=== PATIENT | male | born 1980 | race Caucasian/White ===

== ENCOUNTER 2019-08-26 19:44 | Emergency (ER) | payer OTHER, SELFPAY ==
[2019-08-26 19:47] VITALS: BP 188/111; PULSE 97; RESP 16; TEMP 36.5; O2SAT 98
[2019-08-26 19:50] VITALS: RESP 17
--- NOTE | 2019-08-26 20:00 | ED.GENADUL_ITS ---
Discharge Plan Disposition Patient Disposition: AGAINST MEDICAL ADVICE Condition: Stable Discharge Details Chief Complaint: Chest Pain Clinical Impression: Acute pancreatitis Primary Care Provider: Fahad Maldonado ED Provider: Isaak Garcia [place] Meds and New Rx's Prescriptions: New Hydrocodone/Apap 5/325, 4 Tab [[place] 5/325, 4 Tabs/Btl] 1 tab PO BID PRN (Reason: pain) Qty: 0 RF: 0 Ondansetron Odt, 3 Tabs/Btl [Zofran Odt, 3 Tabs/Btl] 4 mg PO Q8H PRN (Reason: vomiting) Qty: 0 RF: 0 Discharge Instructions Additional Instructions: You are leaving AGAINST MEDICAL ADVICE with a diagnosis of acute pancreatitis likely brought on from your alcohol consumption. You are at risk of getting worse and becoming more ill with shock and a possibility. Please abstain from alcohol. Maintain a clear liquid diet. May use ondansetron for vomiting and hydrocodone/acetaminophen for pain to get through till tomorrow. Please return to the ED tomorrow when able for reevaluation and admission. Return at once if you develop fever, persistent vomiting, worsening pain, other concerns or if you change your mind sooner than tomorrow. Referrals: [facility] [Provider Group] Medical Decision Making Patient presenting with epigastric/chest pain that likely is acid related given his large amount of alcohol consumption. He does not have right upper quadrant tenderness. Story is not concerning for cardiac disease though given his smoking status, family history, BMI as well as lack of medical care in the past must consider this. His well score is 0 and he perks out so d-dimer is not necessary. Will treat with GI cocktail and Carafate orally as well as Reglan and Pepcid intravenously. Labs and chest x-ray ordered. EKG nondiagnostic. 20:40 - patient having reaction to the Reglan with pretty significant anxiety and akathisia. IV Benadryl ordered. If this does not help we will give IV Ativan. 21:00 - patient responded well to Benadryl. Now able to lie back down on stretcher and relax. 23:30 - patient's labs came back with markedly elevated lipase. CT scan ordered. His WBC and Hgb are fine. Chemistries and kidney function are good. AST/ALT up likely from drinking alcohol. Bilirubin is fine. Patient given morphine for pain and went to CT. CT shows inflammation of pancreas and duodenum. No fluid collection/necrosis/free air. Repeat troponin is negative. Had long discussion with patient regarding admission. He is refusing due to responsibilties at work tomorrow morning, but will come back tomorrow once that is addressed and be admitted then. We discussed risk including shock and , though currently he looks fine. In fact, BP is elevated still and I suspect he probably has underlying/undiagnosed HTN. In any event, he is signing out AMA. I have instructed him to have a clear liquid diet only. No alcohol. Home with [place] and Zofran to get through until tomorrow when he returns. Understands to return at once if spikes fever, worsening pain, persistent vomiting. Imaging Data Radiologic Study: Attestation: I personally reviewed and interpreted this imaging study as follows: Imaging: X-Ray My impression: negative Radiologist's impression: TECHNIQUE: Imaging protocol: XR of the chest Views: 2 views. COMPARISON: No relevant prior studies available. FINDINGS: Lungs: No focal consolidation. Pleural space: No pleural effusion or pneumothorax. Heart/Mediastinum: The heart and mediastinum are within normal limits. Bones/joints: No acute bony abnormality. IMPRESSION: No acute cardiopulmonary disease. Dictated and Authenticated by: Yon Hodges MD. Radiologic Study #2: Imaging: CT Scan Radiologist's impression: TECHNIQUE: Imaging protocol: Computed tomography of the abdomen and pelvis with intravenous contrast. Radiation optimization: All CT scans at this facility use at least one of these dose optimization techniques: automated exposure control; mA and/or kV adjustment per patient size (includes targeted exams where dose is matched to clinical indication); or iterative reconstruction. Contrast material: OMNIPAQUE 350; Contrast volume: 100 ml; Contrast route: IV; COMPARISON: No relevant prior studies available. FINDINGS: Liver: There is fatty infiltration of the liver. Gallbladder and bile ducts: Normal. No calcified stones. No ductal dilation. Pancreas: There is moderate peripancreatic fat stranding suspicious for pancreatitis. No peripancreatic fluid collection or evidence of necrosis. Spleen: Normal. No splenomegaly. Adrenals: Normal. No mass. Kidneys and ureters: No hydronephrosis. Subcentimeter renal hypodensities are too small to characterize. Stomach and bowel: Inflammatory changes extend along the proximal duodenum. No bowel obstruction. Appendix: No evidence of appendicitis. Intraperitoneal space: Tiny amount of free fluid. No free air. Vasculature: Unremarkable. No abdominal aortic aneurysm. Lymph nodes: Unremarkable. No enlarged lymph nodes. Bladder: There is mild diffuse bladder wall thickening. Reproductive: Unremarkable as visualized. Bones/joints: Unremarkable. No acute fracture. Soft tissues: Unremarkable. IMPRESSION: 1. Findings suspicious for acute pancreatitis. There is probable adjacent duodenitis. 2. Bladder wall thickening may be due to cystitis or lack of distention. 3. Hepatic steatosis. Dictated and Authenticated by: Yon Hodges MD. Lab Data Lab results reviewed: Yes I reviewed the patient's lab results. ECG Data Attestation: I personally reviewed and interpreted this ECG (s) as follows: Prior ECG tracings: not available for review Interpretation: Normal sinus rhythm at a rate of 97. Normal axis and intervals. Nonspecific ST changes noted. Nondiagnostic. HPI General Mode of arrival: ambulatory . Date/Time Provider Initiated Documentation: 08/26/19 19:59 . Limitations to Documentation: no limitations . Information obtained by: patient and RN notes reviewed . HPI Narrative: Patient presents to ED with complaint of chest pain. When asked specifically where the pain is he points to his xiphoid region. Pain started about [birth year]25/1929 this afternoon. Is been constant. Changes a little bit in intensity but not much. Does not radiate anywhere. He has nausea but no vomiting. Feels a little short of breath at times but denies lightheadedness or diaphoresis. Denies any leg pain or leg swelling. Denies any fever or cough. He does smoke cigarettes as well as marijuana. He drinks almost a 12 pack of beer a day. He has a few cups of coffee a day. He did take 800 of ibuprofen 90 minutes prior to coming in with no change in pain. He has not seen a physician in some time, denies any medical problems. Does have family history of cardiac disease. Related Data Home Medications Medication Instructions Recorded Confirmed HYDROcodone/APAP 5/325, 4 tab 1 tab PO BID PRN #0 08/26/19 [[place] 5/325, 4 tabs/btl] Ondansetron ODT, 3 tabs/btl 4 mg PO Q8H PRN #0 08/26/19 [Zofran ODT, 3 tabs/btl] Previous Rx's Medication Instructions Recorded HYDROcodone/APAP 5/325, 4 tab 1 tab PO BID PRN #0 08/26/19 [[place] 5/325, 4 tabs/btl] Ondansetron ODT, 3 tabs/btl 4 mg PO Q8H PRN #0 08/26/19 [Zofran ODT, 3 tabs/btl] Allergies Allergy/AdvReac Type Severity Reaction Status Date / Time Penicillins Allergy Unknown possible Unverified 07/24/17 11:15 reaction Sulfa (Sulfonamide Allergy Unknown possible Unverified 07/24/17 11:15 Antibiotics) reaction metoclopramide AdvReac Severe Anxiety Verified 08/26/19 20:42 and akathisia General Stated Complaint: Chest Pain GABRIELLE: 2 Review of Systems Narrative: 04/07 Review of Systems completed and is negative except as stated above in HPI (Systems reviewed: Const, Eyes, ENT, Resp, CV, GI, , MSK, Skin, Neuro) [facility] Medical History (Updated 08/26/19 @ 23:42 by Isaak Garcia MD) No active medical problems (Acute) Surgical History (Updated 08/26/19 @ 20:15 by Isaak Garcia MD) S/P hernia repair (Inactive) Social History Smoking/Tobacco Use Status: Current every day Alcohol Intake: current Alcohol Intake frequency: 3 or more drinks per day Alcohol type: beer Drug use: Daily Substance use type: marijuana Do you feel safe at home: Yes Do you feel safe in your relationship?: Yes Exam Narrative Exam Narrative: Vitals: Afebrile. Markedly hypertensive. Otherwise normal heart rate and respiratory rate as well as room air pulse oximetry. Const: Obese male in NAD. HEENT: NC/AT. Normal facial exam. Eyes: Normal conjunctiva and sclera. Neck: Supple. Trachea midline. Lungs: Normal respiratory effort. Lungs are clear. Cor: RRR without murmur/gallop. Good radial pulses. GI: Soft and nondistended. Tender in the epigastric area without guarding or rebound. No tenderness in the right upper quadrant. Neuro: A+O x 3. Normal speech, mentation, gait. Cranial nerves II - XII grossly intact. No gross motor or sensory deficit. Ext: No C/C/E. No calf tenderness. Skin: Warm and dry without rash. Course Vital Signs Vital signs: Vital Signs Temperature 97.7 F 08/26/19 19:47 Pulse 97 H 08/26/19 19:47 Respiratory Rate 16 08/26/19 19:47 Blood Pressure 188/111 H 08/26/19 19:47 Pulse Oximetry 98 08/26/19 19:47 Temperature 97.7 F 08/26/19 19:47 Temperature Source Skin 08/26/19 19:47 Pulse 97 H 08/26/19 19:47 Respiratory Rate 17 08/26/19 19:50 Respiratory Effort 08/26/19 19:50 Respiratory Depth Normal 08/26/19 19:50 Respiratory Pattern Normal 08/26/19 19:50 Blood Pressure 188/111 H 08/26/19 19:47 Blood Pressure Position Supine 08/26/19 19:47 Pulse Oximetry 98 08/26/19 19:47 Oxygen Delivery Method Room Air 08/26/19 19:47 Oxygen Flow Rate 0 08/26/19 19:47 Pain Level 7 08/26/19 19:47
[2019-08-26] MEDS: Sucralfate 1 GM TAB PO (20:18)
[2019-08-26] MEDS: FAMOTIDINE 20 MG/50 ML BAG 200 MG IVPB (20:18)
[2019-08-26] MEDS: Metoclopramide 10 MG/2 ML VIAL IVP (20:18)
[2019-08-26 20:19] LABS: Abs Immature Grans 0.02 k/cumm (0.0-0.09); Absolute Basophil Count 0.04 k/cumm (0.0-0.2); Absolute Eosinophil Count 0.15 k/cumm (0.0-0.7); Absolute Lymphocyte Count 1.59 k/cumm (1.2-3.4); Absolute Monocyte Count 1.19 k/cumm (0.11-0.7); Absolute Neutrophil Count 6.85 k/cumm (1.2-6.7); Basophils % 0.4; Eosinophils % 1.5; HCT 47.4 % (40.0-50.0); Immature Grans % 0.2 %; Lymphocytes % 16.2; Mean Corp. HGB Concentration 33.8 g/dL (32.0-36.0); Mean Corpuscular Hemoglobin 32.9 pg (27.0-33.0); Mean Corpuscular Volume 97.3 fL (80-95); Mean Platelet Volume 10.9 fL (8.0-11.0); Monocytes % 12.1; Neutrophils % 69.6; Platelet Count 160 x1000/uL (130-400); RBC 4.87 m/cumm (4.50-6.00); RBC Distribution Width 13.2 % (11.8-14.1); White Blood Cell Count 9.84 k/cumm (4.4-10.8)
[2019-08-26] MEDS: Normal Saline Flush 10 ML SYR IVP (20:19)
[2019-08-26] MEDS: diphenhydrAMINE 50 MG/ML VIAL 25 MG IVP (20:41)
--- NOTE | 2019-08-26 20:45 | DI.RAD_ITS ---
EXAM: XR CHEST 2V PA LATERAL CLINICAL HISTORY: chest pain TECHNIQUE: 2D digital imaging was performed. COMPARISON: No exams were available for comparison FINDINGS: MEDIASTINUM: Normal. HEART: Normal. PULMONARY VASCULATURE: Normal. LUNGS: Clear. PLEURAL SPACE: No pleural effusion or pneumothorax. BONE:Normal. OTHER FINDINGS:Normal. IMPRESSION: No acute pulmonary findings. DATA REPOSITORY: RADIATION DOSE DELIVERED:
[2019-08-26 20:54] LABS: ALT 232 U/L (16-63); AST 191 U/L (15-37); Albumin 4.2 g/dL (3.4-5.0); Alkaline Phosphatase 98 U/L (46-116); Anion Gap 8.6 mmol/L (3-11); BUN 7 mg/dL (7-18); Bilirubin, Total 0.9 mg/dL (0.2-1.0); CO2 31.4 mmol/L (21.0-32.0); CREATININE 1.04 mg/dL (0.70-1.30); Calcium 8.9 mg/dL (8.5-10.1); Chloride 99 mmol/L (98-107); Glucose 111 mg/dL (74-106); Magnesium 1.7 mg/dL (1.8-2.4); Potassium 3.5 mmol/L (3.5-5.1); Sodium 139 mmol/L (136-145); Total Protein 8.1 g/dL (6.4-8.2)
--- NOTE | 2019-08-26 20:58 | DI.VRAD_ITS ---
PROCEDURE INFORMATION: Exam: XR Chest, 2 Views Exam date and time: 08/26/2019 8:50 PM Age: 39 years old Clinical indication: Chest pain and sternal or substernal pain; Type not specified; Patient HX: Substernal epigastric chest pain today TECHNIQUE: Imaging protocol: XR of the chest Views: 2 views. COMPARISON: No relevant prior studies available. FINDINGS: Lungs: No focal consolidation. Pleural space: No pleural effusion or pneumothorax. Heart/Mediastinum: The heart and mediastinum are within normal limits. Bones/joints: No acute bony abnormality. IMPRESSION: No acute cardiopulmonary disease. Dictated and Authenticated by: Yon Hodges MD. Ordering:RAJINDER Mulligan MD
[2019-08-26 21:00] LABS: Lipase 1757 U/L (73-393); Troponin I < 0.05 ng/Ml (<0.06)
--- NOTE | 2019-08-26 21:08 | DI.CT_ITS ---
EXAM: CT ABDOMEN PELVIS W CLINICAL HISTORY: epigastric pain with elevated lipase (1700) TECHNIQUE: Imaging Protocol: Axial computed tomography images with coronal and sagittal reformatted images were created and reviewed CONTRAST MATERIAL: Intravenous: Omnipaque 350 Contrast volume:100 mL Oral: No COMPARISON: No exams were available for comparison FINDINGS: ABDOMEN: Lung Bases: Normal where visualized. Liver: Decreased attenuation diffusely consistent with hepatic steatosis. No measurable mass. Portal, Superior Mesenteric, and Splenic Veins: Unremarkable. Gallbladder and Biliary Tract: No radiodense calculus or dilation. Pancreas: There is moderate stranding seen around the head and body of the pancreas consistent with a cute pancreatitis. Mild increase in size of the head of the pancreas is noted. No focal fluid collec tion is seen to suggest abscess or phlegmon. Spleen: Normal. Small partially calcified cyst in the anterior medial aspect of the spleen. Adrenals: No masses seen. Kidneys: Normal size, contour and axis. No radiodense stones or obstructive uropathy. No masses seen. Abdominal Aorta: Abdominal portion non-dilated. Bowel: Mild wall thickening seen in the duodenum adjacent to the pancreatic inflammatory process. Th ere is a normal retrocecal appendix. Remainder of the bowel is unremarkable. Peritoneal Cavity: No ascites, collection or mesenteric inflammatory response. Lymph Nodes: Within normal limits. Bones: Unremarkable. Soft Tissues: Unremarkable. PELVIS: Bladder: Incompletely distended likely accounting for the mild bladder wall thickening. Infectious o r inflammatory process cannot be entirely excluded however. Reproductive Organs: Unremarkable as visualized. Lymph Nodes: Within normal limits. Bones: Within normal limits. IMPRESSION: 1. Findings most consistent with acute pancreatitis. No evidence of abscess or phlegmon. 2. Findings suggestive of duodenitis likely secondary to the adjacent inflamed pancreas. 3. Hepatic steatosis. Incidental Findings RADIATION DOSE DELIVERED: DATA REPOSITORY: All CT scans at this facility are submitted to the National Radiology Data Registry (NRDR) Dose Index Registry (DIR) with the [employer] (A[employer]). RADIATION OPTIMIZATION: All CT scans at this facility use at least one of these dose optimization te chniques: automated exposure control; mA and/or kV adjustment per patient size (includes targeted exa ms where dose is matched to clinical indication); or iterative reconstruction.
[2019-08-26] MEDS: Lactated Ringers 1,000 ML 200 ML IV (21:13)
[2019-08-26] MEDS: Omnipaque 350 MG/ML 100 ML BTL IJ (21:16)
[2019-08-26] MEDS: Normal Saline - Diluent 50 ML VIAL IV (21:27)
[2019-08-26 21:34] VITALS: BP 172/100; PULSE 90; O2SAT 96
--- NOTE | 2019-08-26 22:07 | DI.VRAD_ITS ---
PROCEDURE INFORMATION: Exam: CT Abdomen And Pelvis With Contrast Exam date and time: 08/26/2019 9:26 PM Age: 39 years old Clinical indication: Other: Epigastric pain with elevated lipase (1700); Prior surgery; Surgery date: 6+ months; Surgery type: Hernia repair; Additional info: Epigastric pain with elevated lipase (1700) with nausea TECHNIQUE: Imaging protocol: Computed tomography of the abdomen and pelvis with intravenous contrast. Radiation optimization: All CT scans at this facility use at least one of these dose optimization techniques: automated exposure control; mA and/or kV adjustment per patient size (includes targeted exams where dose is matched to clinical indication); or iterative reconstruction. Contrast material: OMNIPAQUE 350; Contrast volume: 100 ml; Contrast route: IV; COMPARISON: No relevant prior studies available. FINDINGS: Liver: There is fatty infiltration of the liver. Gallbladder and bile ducts: Normal. No calcified stones. No ductal dilation. Pancreas: There is moderate peripancreatic fat stranding suspicious for pancreatitis. No peripancreatic fluid collection or evidence of necrosis. Spleen: Normal. No splenomegaly. Adrenals: Normal. No mass. Kidneys and ureters: No hydronephrosis. Subcentimeter renal hypodensities are too small to characterize. Stomach and bowel: Inflammatory changes extend along the proximal duodenum. No bowel obstruction. Appendix: No evidence of appendicitis. Intraperitoneal space: Tiny amount of free fluid. No free air. Vasculature: Unremarkable. No abdominal aortic aneurysm. Lymph nodes: Unremarkable. No enlarged lymph nodes. Bladder: There is mild diffuse bladder wall thickening. Reproductive: Unremarkable as visualized. Bones/joints: Unremarkable. No acute fracture. Soft tissues: Unremarkable. IMPRESSION: 1. Findings suspicious for acute pancreatitis. There is probable adjacent duodenitis. 2. Bladder wall thickening may be due to cystitis or lack of distention. 3. Hepatic steatosis. Dictated and Authenticated by: Yon Hodges MD. Ordering:RAJINDER Mulligan MD
[2019-08-26 22:31] VITALS: BP 145/105; PULSE 88; O2SAT 96
[2019-08-26 23:30] LABS: Troponin I < 0.05 ng/Ml (<0.06)
[2019-08-26] MEDS: Ondansetron O.D.T. 4 MG TABEF, 3 TABS/BTL PO (23:40)
[2019-08-26 23:41] VITALS: BP 156/106; PULSE 94; RESP 16; O2SAT 94
--- NOTE | 2019-08-26 23:50 | NUR.NOTE ---
Admission recommended, pt declined, states he has to go to work tomorrow. Leaving AMA, risks discussed with MD Garcia. Pt states he will return tomorrow after work for admission. CL diet discussed. IV removed. Ambulated to exit with steady gait.
== END 2019-08-26 23:45 | disposition left against medical advice (07) ==
PROVIDERS: Emergency Provider Emergency Medicine; PCP Family Medicine
DX: K85.90 Acute pancreatitis without necrosis or infection, unspecified (principal); F10.10 Alcohol abuse, uncomplicated; F41.9 Anxiety disorder, unspecified; G25.71 Drug induced akathisia; T45.0X5A Adverse effect of antiallergic and antiemetic drugs, initial encounter; R03.0 Elevated blood-pressure reading, without diagnosis of hypertension; Z53.29 Procedure and treatment not carried out because of patient's decision for other reasons
CPT/HCPCS: 36415; 80053; 83690; 93005; 96361; 96365; 96375; 99285; 71046; 74177; 83735; 84484; 85025; 93010; 99284; J1200; J2765; J3490

== ENCOUNTER 2019-08-27 10:27 | Inpatient (IN) | payer OTHER, SELFPAY ==
[2019-08-27] VITALS (94 sets, daily range): BP systolic 129–187; BP diastolic 93–138; PULSE 95–151; RESP 13–63; TEMP 36.5–36.6; O2SAT 91–100
[2019-08-27] MEDS: Normal Saline 1,000 ML 1000 ML IV (11:06)
[2019-08-27] MEDS: Ondansetron 4 MG/2 ML VIAL (11:06)
[2019-08-27 11:15] LABS: Abs Immature Grans 0.04 k/cumm (0.0-0.09); Absolute Monocyte Count 1.29 k/cumm (0.11-0.7); Basophils % 0.1; Eosinophils % 0.1; HGB 17.8 g/dL (13.5-17.5); Immature Grans % 0.3 %; Lymphocytes % 6.5; Mean Corp. HGB Concentration 33.6 g/dL (32.0-36.0); Mean Corpuscular Hemoglobin 32.6 pg (27.0-33.0); Mean Corpuscular Volume 97.1 fL (80-95); Mean Platelet Volume 11.1 fL (8.0-11.0); Monocytes % 9.3; Neutrophils % 83.7; Platelet Count 180 x1000/uL (130-400); RBC 5.46 m/cumm (4.50-6.00); RBC Distribution Width 13.2 % (11.8-14.1); White Blood Cell Count 13.86 k/cumm (4.4-10.8)
[2019-08-27] MEDS: LORazepam 2 MG/ML VIAL 0.5 MG IV (11:15)
[2019-08-27 11:16] LABS: Absolute Basophil Count 0.01 k/cumm (0.0-0.2); Absolute Eosinophil Count 0.01 k/cumm (0.0-0.7)
[2019-08-27] MEDS: Normal Saline Flush 10 ML SYR IVP ×2 (11:16→23:19)
--- NOTE | 2019-08-27 11:21 | W.ED.GENAD ---
Discharge Plan Discharge Details Chief Complaint: Abd Prob Admit Date/Time: 08/27/19 14:26 Admit Provider: Lanny Zhou Attending Provider: Lanny Zhou Primary Care Provider: Fahad Maldonado ED Provider: Oly Garcia Discharge Data Discharge Date/Time-TO BE ENTERED AT DEPARTURE: 08/27/19 18:02 Medical Decision Making This is a pleasant 39-year-old patient presenting to the emergency room complaining of return of his abdominal pain. Patient was evaluated in the emergency room yesterday diagnosed with pancreatitis ultimately was offered admission to the hospital and declined. Patient reported he was compliant with pain medication prescribed which was effective at managing his pain however once medication for pain wore off pain became intolerable. Patient does report an episode of vomiting while he was at school today. 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 Patient reports he is feeling worse. Patient presents appearing quite diaphoretic and anxious. Patient reports 10 out of 10 abdominal pain at this time. Patient is a daily drinker admitting to approximately 12 beers daily. Patient has not drank in approximately 30 hours and is also likely experiencing alcohol withdrawal at this time. Patient does report nausea and sweating. Patient denies obvious tremulous feeling at this time. Patient requesting medication for pain and admission to the hospital as he is having difficulty managing this at home. Will repeat patient's labs as well as hydrate IV. Pain medication as well as Ativan ordered for alcohol withdrawal. EKG reveals a heart rate of 122 with sinus tachycardia. No significant change compared to yesterday's EKG. QTC noted to be 530. No ST segment changes noted. This was reviewed with Dr. Gabriel Coon. CT 08/26/2019 revealed FINDINGS: Liver: There is fatty infiltration of the liver. Gallbladder and bile ducts: Normal. No calcified stones. No ductal dilation. Pancreas: There is moderate peripancreatic fat stranding suspicious for pancreatitis. No peripancreatic fluid collection or evidence of necrosis. Spleen: Normal. No splenomegaly. Adrenals: Normal. No mass. Kidneys and ureters: No hydronephrosis. Subcentimeter renal hypodensities are too small to characterize. Stomach and bowel: Inflammatory changes extend along the proximal duodenum. No bowel obstruction. Appendix: No evidence of appendicitis. Intraperitoneal space: Tiny amount of free fluid. No free air. Vasculature: Unremarkable. No abdominal aortic aneurysm. Lymph nodes: Unremarkable. No enlarged lymph nodes. Bladder: There is mild diffuse bladder wall thickening. Reproductive: Unremarkable as visualized. Bones/joints: Unremarkable. No acute fracture. Soft tissues: Unremarkable. IMPRESSION: 1. Findings suspicious for acute pancreatitis. There is probable adjacent duodenitis. 2. Bladder wall thickening may be due to cystitis or lack of distention. 3. Hepatic steatosis. Repeat of patient's labs today reveal a new leukocytosis which was not present yesterday, worsening of lipase, mild elevation of bilirubin which was normal yesterday. Patient's LFTs were somewhat improved compared to yesterday's evaluation. Patient has required multiple doses of pain medication for adequate management of his pain. Patient is scoring on CIWA and is now getting 2 mg of Ativan as needed for withdrawal symptoms which is quite helpful in managing his withdrawal symptoms. Patient has been provided Zofran for nausea relief. Spoke with Dr. Zhou of surgery regarding patient's labs in addition to his clinical presentation of pancreatitis. She does recommend ultrasound of the right upper quadrant to rule out any choledocholithiasis at this time. She does recommend LR to be used for rehydration after initial normal saline bolus provided. No evidence of choledocholithiasis, pericholecystic fluid or ductal dilation. Discussed case again with Dr. Zhou of surgery who will admit the patient for acute pancreatitis, and the presence of alcohol withdrawal. Patient agrees with plan of care admission at this time. Patient is currently more comfortable in bed. customer care team coach did evaluate the patient at the bedside and has established a relationship they have estranged phone numbers patient does not feel he needs AAA at this time but will follow-up as an outpatient as needed with manager recovery. Resources were provided to the patient. HPI General Date/Time Provider Initiated Documentation: 08/27/19 10:55. HPI Narrative: This is a 39-year-old patient returning to the emergency room after being seen in the emergency room yesterday and diagnosed with pancreatitis. This patient was advised admission to the hospital yesterday however he declined. Patient was sent home with [facility]. Patient reports when taking medication for pain he did have relief of his abdominal pain however reports return of abdominal pain during the day at work today and began vomiting. Patient returns to the emergency room for increase in pain in his upper abdomen. Denies radiating pain toward his back. Patient presents appearing quite sweaty. Reports nausea. 10 out of 10 abdominal pain. Patient denies bowel changes or diarrhea. Patient denies chest pain, difficulty breathing shortness or wheezing. Patient is a daily drinker he reports drinking approximately 12 beers daily for several years. Has never detoxed or been in any program. Patient reports last drink was approximately 30 hours ago. Patient denies history of pancreatitis in the past. He does report a few months ago he did have abdominal pain which was similar in nature but resolved on its own without seeking evaluation. Related Data Home Medications Medication Instructions Recorded Confirmed HYDROcodone/APAP 5/325, 4 tab 1 tab PO BID PRN #0 08/26/19 08/27/19 [[place] 5/325, 4 tabs/btl] Ondansetron ODT, 3 tabs/btl 4 mg PO Q8H PRN #0 08/26/19 08/27/19 [Zofran ODT, 3 tabs/btl] Previous Rx's Medication Instructions Recorded HYDROcodone/APAP 5/325, 4 tab 1 tab PO BID PRN #0 08/26/19 [[place] 5/325, 4 tabs/btl] Ondansetron ODT, 3 tabs/btl 4 mg PO Q8H PRN #0 08/26/19 [Zofran ODT, 3 tabs/btl] Allergies Allergy/AdvReac Type Severity Reaction Status Date / Time Penicillins Allergy Unknown possible Unverified 07/24/17 11:15 reaction Sulfa (Sulfonamide Allergy Unknown possible Unverified 07/24/17 11:15 Antibiotics) reaction metoclopramide AdvReac Severe Anxiety Verified 08/26/19 20:42 and akathisia General Stated Complaint: Abd Prob GABRIELLE: 3 Review of Systems All systems reviewed & are unremarkable except as noted in HPI and below Constitutional Constitutional: Denies chills, Denies fever(s), Denies headache(s) and Reports malaise ENT Ears, Nose, Mouth, and Throat: Denies otalgia, Denies headache(s) and Denies sore throat Cardiovascular Cardiovascular: Denies chest pain, Denies dyspnea and Denies dyspnea on exertion Respiratory Respiratory: Denies cough, Denies dyspnea and Denies dyspnea on exertion Gastrointestinal Gastrointestinal: Reports abdominal pain, Denies diarrhea, Reports nausea and Reports vomiting Genitourinary Genitourinary: Denies hematuria and Denies oliguria Neurologic Neurologic: Denies headache(s) [facility] Medical History Alcohol dependence with withdrawal delirium (Acute) Alcohol withdrawal delirium, acute, hyperactive (Acute) ETOH abuse (Chronic) No active medical problems (Acute) Surgical History (Updated 08/26/19 @ 20:15 by Isaak Garcia MD) S/P hernia repair (Inactive) Social History Smoking/Tobacco Use Status: Current every day Alcohol Intake: current Alcohol Intake frequency: 3 or more drinks per day Alcohol type: beer Drug use: Daily Substance use type: marijuana Do you feel safe at home: Yes Do you feel safe in your relationship?: Yes Exam Narrative Exam Narrative: CONST: Diaphoretic, uncomfortable. alert and oriented. HENMT: Head nomocephalic, normal to inspection. Atraumatic. Hearing grossly normal. External ear canal no erythema or swelling. TM normal bilaterally. Nose normal to inspection. No rhinnorhea. Normal facial exam. Oral mucosa normal. Tounge normal. Dentition normal. Normal posterior oropharynx. Uvula midline. EYES: General normal appearance. Alignment normal. Eyelids normal. Conjunctiva normal. Sclera normal. PERRL. NECK: Normal visual inspection. CHEST: Normal insepection of the chest. RESP: Normal respiratory effort. Speaking full sentences. No cough. No wheezing. No retractions. Clear to auscaltation. Breath sound equal and present bilaterally. CARDIO: No JVD. Normal PMI. Tachycardic. Regular Rhythm. Normal peripheral pulses. GI: Normal inspection of abdomen. No distension. Abdomen is soft, tenderness noted to the left upper quadrant as well as epigastric, mild periumbilical pain. No significant lower abdominal pain noted. Bowel sounds present in all 4 quadrants. No rebound. No gaurding. MUSCULOSKELETAL: Normal Gait. FROM of all extremities. No distal edema present SKIN: Normal. Clammy. No rashes. NEURO: Alert and awake. Speech clear. PSYCH: Anxious. cooperative. Course Vital Signs Vital signs: Vital Signs Respiratory Rate 16 08/27/19 10:36 Temperature 36.6 C 08/27/19 10:47 Temperature Source Tympanic 08/27/19 10:47 Pulse 114 H 08/27/19 10:47 Respiratory Rate 16 08/27/19 10:47 Respiratory Effort Non-Labored 08/27/19 10:36 Respiratory Depth Normal 08/27/19 10:36 Respiratory Pattern Normal 08/27/19 10:36 Blood Pressure 163/118 H 08/27/19 10:47 Blood Pressure Position Sitting 08/27/19 10:47 Pulse Oximetry 100 08/27/19 10:47 Oxygen Delivery Method Room Air 08/27/19 10:47 Oxygen Flow Rate 0 08/27/19 10:47 Pain Level 10 08/27/19 11:06 Lab/Test Results Lab/Test Results: Laboratory Tests Range/Units 08/27/19 10:44 WBC (4.4-10.8) k/cumm 13.86 H D RBC (4.50-6.00) m/cumm 5.46 Hgb (13.5-17.5) g/dL 17.8 H Hct (40.0-50.0) % 53.0 H MCV (80-95) fL 97.1 H MCH (27.0-33.0) pg 32.6 MCHC (32.0-36.0) g/dL 33.6 RDW (11.8-14.1) % 13.2 Plt Count (130-400) x1000/uL 180 MPV (8.0-11.0) fL 11.1 H Immature Gran % % 0.3 Neutrophils % 83.7 Lymphocytes % 6.5 Monocytes % 9.3 Eosinophils % 0.1 Basophils % 0.1 Absolute Neutrophils (1.2-6.7) k/cumm 11.60 H Absolute Lymphocytes (1.2-3.4) k/cumm 0.90 L Absolute Monocytes (0.11-0.7) k/cumm 1.29 H Absolute Eosinophils (0.0-0.7) k/cumm 0.01 Absolute Basophils (0.0-0.2) k/cumm 0.01
[2019-08-27 11:30] LABS: ALT 195 U/L (16-63); AST 126 U/L (15-37); Albumin 4.3 g/dL (3.4-5.0); Alkaline Phosphatase 101 U/L (46-116); Anion Gap 12.3 mmol/L (3-11); BUN 10 mg/dL (7-18); Bilirubin, Total 2.2 mg/dL (0.2-1.0); CO2 28.7 mmol/L (21.0-32.0); CREATININE 1.31 mg/dL (0.70-1.30); Chloride 98 mmol/L (98-107); Glucose 146 mg/dL (74-106); Potassium 3.5 mmol/L (3.5-5.1); Sodium 139 mmol/L (136-145); Total Protein 8.1 g/dL (6.4-8.2)
[2019-08-27 11:50] LABS: Lipase 6879 U/L (73-393)
--- NOTE | 2019-08-27 12:15 | DI.US_ITS ---
EXAM: US ABDOMEN LIMITED CLINICAL HISTORY: RUQ R/O CHOLEDOCHOLITHIASIS TECHNIQUE: Ultrasound abdomen performed using standard protocol. COMPARISON: No exams were available for comparison FINDINGS: LIVER: Enlarged measuring 20 cm. Diffuse increased echogenicity consistent with fatty infiltration. GALLBLADDER: No evidence of cholelithiasis. No evidence of wall thickening. No pericholecystic fluid identified. BILIARY SYSTEM: Common bile duct measures 3.4 mm. No intrahepatic biliary ductal dilation. SAMAYOA'S SIGN: Negative. ASCITES: None seen. IMPRESSION: Limited abdominal ultrasound. Hepatomegaly and hepatic steatosis. No evidence of cholelithiasis or biliary ductal dilatation. DATA REPOSITORY:
[2019-08-27] MEDS: LORazepam 2 MG/ML VIAL IVP ×2 (12:52→17:12)
[2019-08-27] MEDS: FAMOTIDINE 20 MG/50 ML BAG 200 MG IVPB ×2 (12:53→23:15)
[2019-08-27] MEDS: Lactated Ringers 1,000 ML 1000 ML IV ×2 (12:53→17:30)
[2019-08-27] MEDS: Lactated Ringers 1,000 ML 200 ML IV ×2 (18:53→23:46)
[2019-08-27] MEDS: LORazepam 1 MG TAB PO/SL ×2 (19:32→21:48)
--- NOTE | 2019-08-27 21:34 | HPE_ITS ---
Date of service: 08/27/19 Time of Service: 16:34 Assessment and Plan Assessment and plan (1) Acute pancreatitis: Status: Acute (2) ETOH abuse: Status: Chronic (3) Alcohol dependence with withdrawal delirium: Status: Acute Assessment and plan: w/drawl protocol IV metoprolol for BP pepcid DVT proph pulm toilet cont to trat pancreatitis conservatively. no signs of biliary dx (4) Alcohol withdrawal delirium, acute, hyperactive: Status: Acute History of Present Illness Consults Consult date: 08/27/19 Narrative: pt presented yest to ED w/ dg of pancreatitis. He refused admission. He continue to have increase n/v and pain and presented to the ED today. He has an extensive Hx of ETOH use. He had a mild elevation of the T. Cas- so an US was performed which did not show any signs of Biliary Dx. At the time of consult- he is actively w/ drawing and can't really give any hx. He show no signs of peritonitis. He admits to to drinking 6-12 beers daily. He has Review of Systems Unobtainable due to mental status [facility] Medical History (Updated 08/27/19 @ 21:51 by Lanny Zhou DO) Alcohol dependence with withdrawal delirium (Acute) Alcohol withdrawal delirium, acute, hyperactive (Acute) ETOH abuse (Chronic) No active medical problems (Acute) Surgical History (Updated 08/26/19 @ 20:15 by Isaak Garcia MD) S/P hernia repair (Inactive) Social History Smoking/Tobacco Use Status: Current every day Alcohol Intake: current Alcohol Intake frequency: 3 or more drinks per day Alcohol type: beer Drug use: Daily Substance use type: marijuana Do you feel safe at home: Yes Do you feel safe in your relationship?: Yes Meds Home Medications and Allergies Home Medications Medication Instructions Recorded Confirmed Type HYDROcodone/APAP 5/325, 4 tab 1 tab PO BID PRN #0 08/26/19 08/27/19 Rx [[place] 5/325, 4 tabs/btl] Ondansetron ODT, 3 tabs/btl 4 mg PO Q8H PRN #0 08/26/19 08/27/19 Rx [Zofran ODT, 3 tabs/btl] Allergies Allergy/AdvReac Type Severity Reaction Status Date / Time Penicillins Allergy Unknown possible Unverified 07/24/17 11:15 reaction Sulfa (Sulfonamide Allergy Unknown possible Unverified 07/24/17 11:15 Antibiotics) reaction metoclopramide AdvReac Severe Anxiety Verified 08/26/19 20:42 and akathisia Results Labs Result diagrams: 08/28/19 06:18 08/28/19 06:18 Labs: Laboratory Results - last 24 hr 08/27/19 08/27/19 10:44 10:44 WBC 13.86 H D RBC 5.46 Hgb 17.8 H Hct 53.0 H MCV 97.1 H MCH 32.6 MCHC 33.6 RDW 13.2 Plt Count 180 MPV 11.1 H Immature Gran % 0.3 Neutrophils % 83.7 Lymphocytes % 6.5 Monocytes % 9.3 Eosinophils % 0.1 Basophils % 0.1 Absolute Neutrophils 11.60 H Absolute Lymphocytes 0.90 L Absolute Monocytes 1.29 H Absolute Eosinophils 0.01 Absolute Basophils 0.01 Sodium 139 Potassium 3.5 Chloride 98 Carbon Dioxide 28.7 Anion Gap 12.3 H BUN 10 Creatinine 1.31 H Estimated GFR/1.73 m2 >= 60.00 Glucose 146 H Calcium 9.0 Total Bilirubin 2.2 H AST 126 H ALT 195 H Alkaline Phosphatase 101 Total Protein 8.1 Albumin 4.3 Lipase 6879 H Last Vital Signs Temp 36.6 C 08/27/19 18:17 Pulse 117 H 08/27/19 18:19 Resp 27 H 08/27/19 18:19 BP 164/138 H 08/27/19 18:19 Pulse Ox 92 L 08/27/19 18:19
[2019-08-27] MEDS: Metoprolol 5 MG/5 ML VIAL IVP (22:00)
[2019-08-27] MEDS: diazePAM 10 MG/2 ML SYR IVP ×2 (22:55→23:54)
[2019-08-28] VITALS (90 sets, daily range): BP systolic 108–157; BP diastolic 77–104; PULSE 102–160; RESP 12–39; TEMP 36.2–37.6; O2SAT 76–97
--- NOTE | 2019-08-28 | DI.RAD_ITS ---
EXAM: XR PORTABLE CHEST AP CLINICAL HISTORY: poss aspiration TECHNIQUE: 2D digital imaging was performed. COMPARISON: XR CHEST 2V PA LATERAL from 08/26/2019 FINDINGS: MEDIASTINUM: Normal. HEART: Normal. PULMONARY VASCULATURE: Normal. LUNGS: Linear infiltrates in the lung bases are present. These may represent atelectasis or pneumoni a. PLEURAL SPACE: No pleural effusion or pneumothorax. BONE:Normal. OTHER FINDINGS:There is poor inspiration. IMPRESSION: 1. Poor inspiratory effort. 2. Bilateral basilar linear infiltrates. This may represent atelectasis or pneumonia. DATA REPOSITORY: RADIATION DOSE DELIVERED:
[2019-08-28] MEDS: diazePAM 10 MG/2 ML SYR IVP ×14 (00:12→23:54)
[2019-08-28 00:38] LABS: *AMPHETAMINES SCREEN URINE Negative (Negative); *BARBITURATES SCREEN URINE Negative (Negative); *BENZODIAZEPINES SCREEN URINE POSITIVE (Negative); Cannabinoids THC Negative (Negative); Cocaine Screen,Urine Negative (Negative); METHADONE URINE SCREEN Negative (Negative); OPIATES URINE SCREEN POSITIVE (Negative)
[2019-08-28 00:46] LABS: Tricyclic Antidepressants Negative (Negative)
[2019-08-28] MEDS: Lactated Ringers 1,000 ML 200 ML IV ×4 (04:27→21:53)
[2019-08-28] MEDS: Metoprolol 5 MG/5 ML VIAL IVP ×4 (04:28→21:22)
[2019-08-28 06:54] LABS: Abs Immature Grans 0.05 k/cumm (0.0-0.09); Absolute Lymphocyte Count 1.15 k/cumm (1.2-3.4); Absolute Monocyte Count 1.49 k/cumm (0.11-0.7); Basophils % 0.1; Eosinophils % 0.1; HCT 48.8 % (40.0-50.0); HGB 16.5 g/dL (13.5-17.5); Immature Grans % 0.3 %; Lymphocytes % 6.8; Mean Corp. HGB Concentration 33.8 g/dL (32.0-36.0); Mean Corpuscular Hemoglobin 33.5 pg (27.0-33.0); Mean Corpuscular Volume 99.2 fL (80-95); Mean Platelet Volume 11.8 fL (8.0-11.0); Monocytes % 8.8; Neutrophils % 83.9; Platelet Count 127 x1000/uL (130-400); RBC 4.92 m/cumm (4.50-6.00); RBC Distribution Width 13.6 % (11.8-14.1); White Blood Cell Count 16.93 k/cumm (4.4-10.8)
[2019-08-28 07:00] LABS: Absolute Basophil Count 0.02 k/cumm (0.0-0.2); Absolute Eosinophil Count 0.02 k/cumm (0.0-0.7)
[2019-08-28 07:01] LABS: C-Reactive Protein 21.76 mg/dL (0.0-0.3)
[2019-08-28 07:05] LABS: ALT 115 U/L (16-63); AST 119 U/L (15-37); Albumin 3.2 g/dL (3.4-5.0); Alkaline Phosphatase 66 U/L (46-116); Anion Gap 8.3 mmol/L (3-11); BUN 12 mg/dL (7-18); Bilirubin, Total 3.1 mg/dL (0.2-1.0); CO2 29.7 mmol/L (21.0-32.0); Calcium 7.6 mg/dL (8.5-10.1); Chloride 99 mmol/L (98-107); Glucose 197 mg/dL (74-106); Magnesium 1.2 mg/dL (1.8-2.4); PHOSPHORUS 2.7 mg/dL (2.6-4.7); Potassium 4.2 mmol/L (3.5-5.1); Sodium 137 mmol/L (136-145); Total Protein 6.5 g/dL (6.4-8.2)
[2019-08-28 07:16] LABS: Ferritin 742 ng/mL (26-388); Folate 4.6 ng/mL (8.6-20.0)
[2019-08-28 07:20] LABS: Lipase 3875 U/L (73-393)
[2019-08-28 07:32] LABS: Calculated LDL 241 mg/dL (<100); Cholesterol 286 mg/dL (<200); HDL Cholesterol 17 mg/dL (40-60); Triglyceride 143 mg/dL (<150)
[2019-08-28] MEDS: Normal Saline Flush 10 ML SYR IVP ×3 (08:12→21:25)
[2019-08-28] MEDS: MULTIVITAMIN 10 ML, THIAMINE 100 MG, FOLIC ACID 1 MG in DEXTROSE 5%-0.45% SALINE 1,000 ML 42 ML IV (09:38)
[2019-08-28] MEDS: MAGNESIUM SULFATE 2 GM/50 ML BAG IVPB (09:38)
[2019-08-28] MEDS: Normal Saline 1,000 ML 1000 ML IV ×4 (09:50→19:16)
--- NOTE | 2019-08-28 09:51 | W.PM.PROGNOT ---
Date of Service Date of service: 08/28/19 Time of Service: 09:51 Assessment and Plan Assessment and plan (1) Alcohol withdrawal delirium, acute, hyperactive: Status: Acute (2) Alcohol dependence with withdrawal delirium: Status: Acute Assessment and plan: slowly improving. cont supportive care elevated WBC- check cxr for asp still dehydrated- fluid blus adjust elcetrolytes (3) ETOH abuse: Status: Chronic (4) Acute pancreatitis: Status: Acute Subjective Subjective Interval history since last seen: pt is still very drowsy but seems slightly more alert today. Will answer questions if aroused. Still tachycardic- but very dehydrated still. RN notes urine is very concentrated. pt is still very agitated and pulling on lines. He would not tolerate a thakur catheter. Exam Narrative Exam Narrative: pt not alert enough to comply w/ full exam HENMT Head: normal to inspection Teeth and gingiva: fair dentition Resp Effort & Inspection: tachypneic Auscultation: clear to auscultation bilaterally Cardio Rate: tachycardic Rhythm: regular rhythm GI Inspection: distended and obesity Palpation: tender (minimal today ) in the epigastrum Auscultation: absent bowel sounds Neuro General: moves all extremities Other: not coherent enough to cooperate w/ exam Extrem General: normal to inspection and no clubbing, cyanosis or edema Objective Objective Clinical Data: Abnormal lab results 08/27/19 08/27/19 08/27/19 Range/Units 10:44 10:44 23:35 WBC 13.86 H D (4.4-10.8) k/cumm Hgb 17.8 H (13.5-17.5) g/dL Hct 53.0 H (40.0-50.0) % MCV 97.1 H (80-95) fL MCH (27.0-33.0) pg Plt Count (130-400) x1000/uL MPV 11.1 H (8.0-11.0) fL Absolute Neutrophils 11.60 H (1.2-6.7) k/cumm Absolute Lymphocytes 0.90 L (1.2-3.4) k/cumm Absolute Monocytes 1.29 H (0.11-0.7) k/cumm Anion Gap 12.3 H (3-11) mmol/L Creatinine 1.31 H (0.70-1.30) mg/dL Glucose 146 H (74-106) mg/dL Calcium (8.5-10.1) mg/dL Magnesium (1.8-2.4) mg/dL Ferritin (26-388) ng/mL Total Bilirubin 2.2 H (0.2-1.0) mg/dL AST 126 H (15-37) U/L ALT 195 H (16-63) U/L C-Reactive Protein (0.0-0.3) mg/dL Albumin (3.4-5.0) g/dL Total Cholesterol (<200) mg/dL LDL Cholesterol, Calc (<100) mg/dL HDL Cholesterol (40-60) mg/dL Lipase 6879 H (73-393) U/L Folate (8.6-20.0) ng/mL Urine Opiates Screen Positive A (Negative) U Benzodiazepines Scrn Positive A (Negative) 08/28/19 08/28/19 08/28/19 Range/Units 06:18 06:18 06:18 WBC 16.93 H (4.4-10.8) k/cumm Hgb (13.5-17.5) g/dL Hct (40.0-50.0) % MCV 99.2 H (80-95) fL MCH 33.5 H (27.0-33.0) pg Plt Count 127 L (130-400) x1000/uL MPV 11.8 H (8.0-11.0) fL Absolute Neutrophils 14.20 H (1.2-6.7) k/cumm Absolute Lymphocytes 1.15 L (1.2-3.4) k/cumm Absolute Monocytes 1.49 H (0.11-0.7) k/cumm Anion Gap (3-11) mmol/L Creatinine (0.70-1.30) mg/dL Glucose 197 H (74-106) mg/dL Calcium 7.6 L (8.5-10.1) mg/dL Magnesium 1.2 L (1.8-2.4) mg/dL Ferritin (26-388) ng/mL Total Bilirubin 3.1 H (0.2-1.0) mg/dL AST 119 H (15-37) U/L ALT 115 H (16-63) U/L C-Reactive Protein 21.76 H (0.0-0.3) mg/dL Albumin 3.2 L (3.4-5.0) g/dL Total Cholesterol (<200) mg/dL LDL Cholesterol, Calc (<100) mg/dL HDL Cholesterol (40-60) mg/dL Lipase (73-393) U/L Folate (8.6-20.0) ng/mL Urine Opiates Screen (Negative) U Benzodiazepines Scrn (Negative) 08/28/19 08/28/19 Range/Units 06:18 06:18 WBC (4.4-10.8) k/cumm Hgb (13.5-17.5) g/dL Hct (40.0-50.0) % MCV (80-95) fL MCH (27.0-33.0) pg Plt Count (130-400) x1000/uL MPV (8.0-11.0) fL Absolute Neutrophils (1.2-6.7) k/cumm Absolute Lymphocytes (1.2-3.4) k/cumm Absolute Monocytes (0.11-0.7) k/cumm Anion Gap (3-11) mmol/L Creatinine (0.70-1.30) mg/dL Glucose (74-106) mg/dL Calcium (8.5-10.1) mg/dL Magnesium (1.8-2.4) mg/dL Ferritin 742 H (26-388) ng/mL Total Bilirubin (0.2-1.0) mg/dL AST (15-37) U/L ALT (16-63) U/L C-Reactive Protein (0.0-0.3) mg/dL Albumin (3.4-5.0) g/dL Total Cholesterol 286 H (<200) mg/dL LDL Cholesterol, Calc 241 H (<100) mg/dL HDL Cholesterol 17 L (40-60) mg/dL Lipase 3875 H (73-393) U/L Folate 4.6 L (8.6-20.0) ng/mL Urine Opiates Screen (Negative) U Benzodiazepines Scrn (Negative) Vital Signs Temperature 36.6 C 08/28/19 07:40 Temperature Source Temporal Artery Scan 08/28/19 07:40 Pulse 134 H 08/28/19 09:35 Pulse Rhythm Regular 08/28/19 00:00 Pulse 145 H 08/28/19 08:10 Respiratory Rate 29 H 08/28/19 08:10 Respiratory Effort Non-Labored 08/28/19 07:40 Respiratory Depth Normal 08/28/19 07:40 Respiratory Pattern Normal 08/28/19 07:40 Blood Pressure 147/104 H 08/28/19 09:35 Blood Pressure Mean 111 08/28/19 07:38 Blood Pressure Position Sitting 08/27/19 10:47 Pulse Oximetry 97 08/28/19 07:40 Oxygen Delivery Method Room Air 08/28/19 07:40 Oxygen Flow Rate 0 08/28/19 07:40 Pain Level 2 08/28/19 08:12 Intake & Output 08/27/19 08/27/19 08/28/19 11:59 23:59 11:59 Intake Total 3026.667 / 3026.667 1061.667 / 1061.667 Output Total 425 / 425 Balance 3026.667 / 2826.667 636.667 / 636.667 Weight 108.862 kg 108.862 kg Intake: IV 3026.667 / 3026.667 986.667 / 986.667 Oral 75 / 75 Output: Urine 425 / 425 Other: Urine Color [place] Urine Appearance Clear Urine Odor None Comment pt did not want Pt's urine is dark, very concentrated, and patient has gone several hundred mls over 8 hours. patient voided on floor so exact amount is unknown Voiding Methods Bedside Commode Laboratory Results WBC 16.93 k/cumm (4.4-10.8) H 08/28/19 06:18 RBC 4.92 m/cumm (4.50-6.00) 08/28/19 06:18 Hgb 16.5 g/dL (13.5-17.5) 08/28/19 06:18 Hct 48.8 % (40.0-50.0) 08/28/19 06:18 MCV 99.2 fL (80-95) H 08/28/19 06:18 MCH 33.5 pg (27.0-33.0) H 08/28/19 06:18 MCHC 33.8 g/dL (32.0-36.0) 08/28/19 06:18 RDW 13.6 % (11.8-14.1) 08/28/19 06:18 Plt Count 127 x1000/uL (130-400) L 08/28/19 06:18 MPV 11.8 fL (8.0-11.0) H 08/28/19 06:18 Immature Gran % 0.3 % 08/28/19 06:18 Neutrophils % 83.9 08/28/19 06:18 Lymphocytes % 6.8 08/28/19 06:18 Monocytes % 8.8 08/28/19 06:18 Eosinophils % 0.1 08/28/19 06:18 Basophils % 0.1 08/28/19 06:18 Absolute Neutrophils 14.20 k/cumm (1.2-6.7) H 08/28/19 06:18 Absolute Lymphocytes 1.15 k/cumm (1.2-3.4) L 08/28/19 06:18 Absolute Monocytes 1.49 k/cumm (0.11-0.7) H 08/28/19 06:18 Absolute Eosinophils 0.02 k/cumm (0.0-0.7) 08/28/19 06:18 Absolute Basophils 0.02 k/cumm (0.0-0.2) 08/28/19 06:18 Sodium 137 mmol/L (136-145) 08/28/19 06:18 Potassium 4.2 mmol/L (3.5-5.1) 08/28/19 06:18 Chloride 99 mmol/L (98-107) 08/28/19 06:18 Carbon Dioxide 29.7 mmol/L (21.0-32.0) 08/28/19 06:18 Anion Gap 8.3 mmol/L (3-11) 08/28/19 06:18 BUN 12 mg/dL (7-18) 08/28/19 06:18 Creatinine 1.30 mg/dL (0.70-1.30) 08/28/19 06:18 Estimated GFR/1.73 m2 >= 60.00 (mL/min/1.73m2) 08/28/19 06:18 Glucose 197 mg/dL (74-106) H 08/28/19 06:18 Calcium 7.6 mg/dL (8.5-10.1) L 08/28/19 06:18 Phosphorus 2.7 mg/dL (2.6-4.7) 08/28/19 06:18 Magnesium 1.2 mg/dL (1.8-2.4) L 08/28/19 06:18 Ferritin 742 ng/mL (26-388) H 08/28/19 06:18 Total Bilirubin 3.1 mg/dL (0.2-1.0) H 08/28/19 06:18 AST 119 U/L (15-37) H 08/28/19 06:18 ALT 115 U/L (16-63) H 08/28/19 06:18 Alkaline Phosphatase 66 U/L (46-116) 08/28/19 06:18 C-Reactive Protein 21.76 mg/dL (0.0-0.3) H 08/28/19 06:18 Total Protein 6.5 g/dL (6.4-8.2) 08/28/19 06:18 Albumin 3.2 g/dL (3.4-5.0) L 08/28/19 06:18 Triglycerides 143 mg/dL (<150) 08/28/19 06:18 Total Cholesterol 286 mg/dL (<200) H 08/28/19 06:18 LDL Cholesterol, Calc 241 mg/dL (<100) H 08/28/19 06:18 HDL Cholesterol 17 mg/dL (40-60) L 08/28/19 06:18 Lipase 3875 U/L (73-393) H 08/28/19 06:18 Folate 4.6 ng/mL (8.6-20.0) L 08/28/19 06:18 Urine Opiates Screen Positive (Negative) A 08/27/19 23:35 Urine Methadone Screen Negative (Negative) 08/27/19 23:35 Ur Barbiturates Screen Negative (Negative) 08/27/19 23:35 Ur Tricyclics Screen Negative (Negative) 08/27/19 23:35 Ur Amphetamines Screen Negative (Negative) 08/27/19 23:35 U Benzodiazepines Scrn Positive (Negative) A 08/27/19 23:35 Urine Cocaine Screen Negative (Negative) 08/27/19 23:35 Ur THC Screen Negative (Negative) 08/27/19 23:35
[2019-08-28] MEDS: Enoxaparin 40 MG/0.4 ML SYR SC (10:14)
[2019-08-28] MEDS: Normal Saline 500 ML 30 ML IV (10:15)
[2019-08-28] MEDS: FAMOTIDINE 20 MG/50 ML BAG 200 MG IVPB ×2 (13:46→14:10)
--- NOTE | 2019-08-28 15:31 | PT.INIE ---
Date of service: 08/28/19 Time of Service: 15:37 PT Notes Visit Reasons: ALCHOLIC PANCREATITIS Physical Therapy Inpatient Initial Evaluation Date: 08/28/2019 Referring Doctor: Lanny Zhou MD PT Orders: PT CONSULT: Limited ability Precautions: Fall. Standard. Activity as tolerated. Patient Profile/Admitting Diagnosis: Patient is a 39-year-old male who presented to the ED on 08/27/2019 with chief presentation of increased abdominal pain and vomiting. Patient presented to the ED a day prior to yesterday with diagnosis of pancreatitis but patient declined admission and was sent home with Tena by ED MD. patient is diagnosed with acute pancreatitis, EtOH abuse, alcohol dependence, and alcohol withdrawal. PMHX: Medical History (Updated 08/27/19 @ 21:51 by Lanny Zhou DO) Alcohol dependence with withdrawal delirium (Acute) Alcohol withdrawal delirium, acute, hyperactive (Acute) ETOH abuse (Chronic) No active medical problems (Acute) Surgical History (Updated 08/26/19 @ 20:15 by Isaak Garcia MD) S/P hernia repair (Inactive) Social History/Home Situation: Patient lives with fianc? and 13-year-old twins in a private home with 4 steps to enter and bilateral rails. He is independent with all aspects of ADLs prior to admission. Equipment Owned/DME: None Subjective: Patient is agreeable to PT evaluation. Patient complains of abdominal fullness. He denies any headache, chest pain, abdominal pain, and dizziness throughout PT session. Objective: General Observation: Patient on telemetry monitoring. IV in the right UE. Ox of oxygen supplementation via NC Mental Status: Alert and oriented x4 Pain: 0/10 Vital Signs: Heart rate ranged from 120 to 135 bpm throughout PT session. ROM: Right Upper Extremity: Shoulder Flexion WFL. Shoulder abduction WFL. Elbow flexion WFL. Wrist flexion WFL. Opening and closing of hand WFL. Left Upper Extremity: Shoulder Flexion WFL. Shoulder abduction WFL. Elbow flexion WFL. Wrist flexion WFL. Opening and closing of hand WFL. Right Lower Extremity: Hip flexion WFL. Hip abduction WFL. Knee flexion WFL. Ankle dorsiflexion WFL. Ankle plantarflexion WFL. Left Lower Extremity: Hip flexion WFL. Hip abduction WFL. Knee flexion WFL. Ankle dorsiflexion WFL. Ankle plantarflexion WFL. Strength: Right Upper Extremity: Shoulder flexors 5/5. Shoulder abductors 5/5. Elbow flexors 5/5. Elbow extensors 5/5. Telephone Interviewer strong. Left Upper Extremity: Shoulder flexors 5/5. Shoulder abductors 5/5. Elbow flexors 5/5. Elbow extensors 5/5. Telephone Interviewer strong. Right Lower Extremity: Hip flexors 5/5. Hip abductors 5/5. Knee flexors 5/5. Knee extensors 5/5. Ankle dorsiflexors 5/5. Ankle plantarflexors 5/5. Left Lower Extremity:Hip flexors 5/5. Hip abductors 5/5. Knee flexors 5/5. Knee extensors 5/5. Ankle dorsiflexors 5/5. Ankle plantarflexors 5/5. Sensation: Intact as to pain and pressure on bilateral lower extremities. Bed Mobility/Transfers: Rolling independent Supine to sit independent Sit to supine independent Sit to stand independent Stand to sit independent Bed to chair independent Chair to bed independent Gait: Patient is independent with in room ambulation without any assistive device. He also tolerated level surface ambulation of 260 feet with ICU nurse without an assistive device with supervision assist only. This afternoon with PT and nurse Alessandra patient tolerated 520 feet of level surface ambulation with front wheeled walker as patient feels mildly unstable but only required supervision assist and minimal verbal cueing for walker management. No complaint of abdominal pain headache, chest pain, and dizziness throughout ambulation activity. Balance: Static Sitting: Normal Dynamic Sitting: Normal Static Standing: Normal Dynamic Standing: Good Special Tests: Mobility Limitations Standardized Measure [facility] 6 clicks Basic Mobility Inpatient Short Form: Raw Score: 24 CMS Score: 0% deficit Informed Consent/Education: Patient instructed in purpose of PT consult and plan of care. Assessment: No skilled physical therapy services needed at this time. Please continue to have nursing staff walk with patient with supervision assist. Patient is a 39-year-old male who presented to the ED on 08/27/2019 with chief presentation of increased abdominal pain and vomiting. Patient presented to the ED a day prior to yesterday with diagnosis of pancreatitis but patient declined admission and was sent home with Martin and Syed by ED MD. patient is diagnosed with acute pancreatitis, EtOH abuse, alcohol dependence, and alcohol withdraw Patient is assessed as a 06019 low complexity based on the following: History: 39-year-old male with past medical history Examination: Demonstrable impairment in activity tolerance Presentation: Stable Decision Makin low complexity Goals: N/A. PT evaluation only. Plan of Care/Treatment Plan: N/AA. PT evaluation only. DISCHARGE RECOMMENDATIONS: Home with family as soon as he is medically cleared. TREATMENT CODE/TIME: 38633 x 31 minutes beginning at 3:31 PM. Thank you very much for this referral. Calista Church PT, DPT, CLT [facility] [place], [place]
[2019-08-28] MEDS: LORazepam 1 MG TAB PO/SL ×2 (18:05→21:18)
[2019-08-28] MEDS: Insulin Aspart 300 UNITS/3 ML PEN SC (18:50)
--- NOTE | 2019-08-28 19:15 | PDOC.CMIN ---
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 Eduardo is indpendent at baseline, he describes a long history of alcohol use. CURRENT FUNCTIONAL STATUS:: Eduardo is showing signs of withdrawal at this time, he is tremolus and restless. He is tachycardic and hypertensive. At the time CM is in the room his fiance Sylvai is present and calming him. Eduardo wants to leave AMA and wants to finsh withdrawing at home. CM provided education r/t to the risk of leaving against medical advise. Eduardo states he wants to stop using alcohol and states I can handle it on my own. Eduardo has agreed at this time to take medications to assist with the symptoms and at least stay tonight. ADVANCE DIRECTIVES:: None on file unable to review at time of interview Has patient been provided with information about the portal?: No Did the patient sign up for the portal?: No CODE STATUS:: Full Code INSURANCE COVERAGE / FINANCIAL ISSUES:: BCBS is listed as inactive patient is unable to clarify at this time. CURRENT HOME/COMMUNITY SERVICES/EQUIPMENT:: None. CM will offer substance abuse services once patient is able to engage with assessment. PRIMARY CARE PHYSICIAN:: Fahad Maldonado MD POTENTIAL DISCHARGE NEEDS:: Follow up with [facility], and referral to substance abuse services. PATIENT/FAMILY EDUCATION NEEDS:: Discharge education, limitations and follow up plan of care. ANTICIPATED BARRIERS TO DISCHARGE:: None TRANSPORTATION:: Via private car with family PLAN:: Eduardo remains in the ICU at this time he will be discharged when medically ready. CM will continue to assess for discharged needs. Eduardo is clear that he does not want any medical information shared with his Dad Reinaldo or spouse Ivon at this time and [facility] staff is to communicate only with the people on his HIPPA at this time. CM has reviewed this with the ICU staff.
[2019-08-28] MEDS: Haloperidol 5 MG/ML VIAL IM (23:39)
[2019-08-28] MEDS: diazePAM 10 MG/2 ML SYR (23:40)
[2019-08-29] VITALS (99 sets, daily range): BP systolic 115–162; BP diastolic 67–131; PULSE 95–155; RESP 4–50; TEMP 37–37.5; O2SAT 86–99
--- NOTE | 2019-08-29 | DI.RAD_ITS ---
EXAM: XR PORTABLE CHEST AP POST LINE INDICATION: S/P LINE COMPARISON: XR PORTABLE CHEST AP POST LINE from 08/29/2019 TECHNIQUE: 2D digital imaging was performed. FINDINGS: A central line has been inserted via the left subclavian. The tip lies in the innominate vein overl sarita the spine. The endotracheal tube is unchanged in position. Bibasilar pulmonary densities are s table. No pneumothorax is seen. IMPRESSION: Status post placement of left central line. DATA REPOSITORY: RADIATION DOSE DELIVERED:
[2019-08-29] MEDS: diazePAM 10 MG/2 ML SYR IVP ×10 (00:05→06:49)
--- NOTE | 2019-08-29 00:23 | W.PM.PROGNOT ---
Date of Service Date of service: 08/29/19 Time of Service: 00:23 Subjective Subjective Interval history since last seen: called to see pt by RN pt having acute psychotic episode. Unsure of what the trigger was. Eros was here earlier. Pt did fall on his head and will get CT when he is more appropriate. Use iv/im haldol adn zyprexa for behaviour control. cont ativan/valiu/serax for detox. MS/dialudid for pain. HEENT- stable pt cannot answer questions reliably at this time. L: CTD b/l. A distended/protuberant adn sift. few bs. ext- moving all ext independently. no signs of abrasions. Pt was placed in restraints and chemically for healing adn device protection, protection to self adn to staff. Will re- eval at 8am Objective Objective Clinical Data: Abnormal lab results 08/27/19 08/28/19 08/28/19 Range/Units 23:35 06:18 06:18 WBC 16.93 H (4.4-10.8) k/cumm MCV 99.2 H (80-95) fL MCH 33.5 H (27.0-33.0) pg Plt Count 127 L (130-400) x1000/uL MPV 11.8 H (8.0-11.0) fL Absolute Neutrophils 14.20 H (1.2-6.7) k/cumm Absolute Lymphocytes 1.15 L (1.2-3.4) k/cumm Absolute Monocytes 1.49 H (0.11-0.7) k/cumm Glucose (74-106) mg/dL Calcium (8.5-10.1) mg/dL Magnesium (1.8-2.4) mg/dL Ferritin (26-388) ng/mL Total Bilirubin (0.2-1.0) mg/dL AST (15-37) U/L ALT (16-63) U/L C-Reactive Protein 21.76 H (0.0-0.3) mg/dL Albumin (3.4-5.0) g/dL Total Cholesterol (<200) mg/dL LDL Cholesterol, Calc (<100) mg/dL HDL Cholesterol (40-60) mg/dL Lipase (73-393) U/L Folate (8.6-20.0) ng/mL Urine Opiates Screen Positive A (Negative) U Benzodiazepines Scrn Positive A (Negative) 08/28/19 08/28/19 08/28/19 Range/Units 06:18 06:18 06:18 WBC (4.4-10.8) k/cumm MCV (80-95) fL MCH (27.0-33.0) pg Plt Count (130-400) x1000/uL MPV (8.0-11.0) fL Absolute Neutrophils (1.2-6.7) k/cumm Absolute Lymphocytes (1.2-3.4) k/cumm Absolute Monocytes (0.11-0.7) k/cumm Glucose 197 H (74-106) mg/dL Calcium 7.6 L (8.5-10.1) mg/dL Magnesium 1.2 L (1.8-2.4) mg/dL Ferritin 742 H (26-388) ng/mL Total Bilirubin 3.1 H (0.2-1.0) mg/dL AST 119 H (15-37) U/L ALT 115 H (16-63) U/L C-Reactive Protein (0.0-0.3) mg/dL Albumin 3.2 L (3.4-5.0) g/dL Total Cholesterol 286 H (<200) mg/dL LDL Cholesterol, Calc 241 H (<100) mg/dL HDL Cholesterol 17 L (40-60) mg/dL Lipase 3875 H (73-393) U/L Folate 4.6 L (8.6-20.0) ng/mL Urine Opiates Screen (Negative) U Benzodiazepines Scrn (Negative) Vital Signs Temperature 37.4 C 08/28/19 20:15 Temperature Source Temporal Artery Scan 08/28/19 20:15 Pulse 129 H 08/28/19 23:51 Pulse Rhythm Regular 08/28/19 00:00 Pulse 133 H 08/28/19 23:51 Respiratory Rate 27 H 08/28/19 23:51 Respiratory Effort Non-Labored 08/28/19 20:15 Respiratory Depth Shallow 08/28/19 20:15 Respiratory Pattern Normal 08/28/19 20:15 Blood Pressure 140/85 08/28/19 23:51 Blood Pressure Mean 100 08/28/19 23:51 Blood Pressure Position Sitting 08/27/19 10:47 Pulse Oximetry 92 L 08/28/19 23:51 Oxygen Delivery Method Room Air 08/28/19 20:15 Oxygen Flow Rate 0 08/28/19 20:15 Pain Level 5 08/28/19 18:27 Intake & Output 08/28/19 08/28/19 08/29/19 11:59 23:59 11:59 Intake Total 3061.667 / 8716.667 5655 / 8716.667 Output Total 425 / 900 475 / 900 Balance 2636.667 / 7816.667 5180 / 7816.667 Intake: IV 2986.667 / 8316.667 5330 / 8316.667 Oral 75 / 400 325 / 400 Output: Urine 425 / 900 475 / 900 Other: Urine Color Hardeman Dark Carolin Urine Appearance Clear Clear Urine Odor None Strong Comment Pt's urine is dark, very concentrated, and patient has gone several hundred mls over 8 hours. patient voided on floor so exact amount is unknown Dark urine. Voiding Methods Bedside Commode Urinal Laboratory Results WBC 16.93 k/cumm (4.4-10.8) H 08/28/19 06:18 RBC 4.92 m/cumm (4.50-6.00) 08/28/19 06:18 Hgb 16.5 g/dL (13.5-17.5) 08/28/19 06:18 Hct 48.8 % (40.0-50.0) 08/28/19 06:18 MCV 99.2 fL (80-95) H 08/28/19 06:18 MCH 33.5 pg (27.0-33.0) H 08/28/19 06:18 MCHC 33.8 g/dL (32.0-36.0) 08/28/19 06:18 RDW 13.6 % (11.8-14.1) 08/28/19 06:18 Plt Count 127 x1000/uL (130-400) L 08/28/19 06:18 MPV 11.8 fL (8.0-11.0) H 08/28/19 06:18 Immature Gran % 0.3 % 08/28/19 06:18 Neutrophils % 83.9 08/28/19 06:18 Lymphocytes % 6.8 08/28/19 06:18 Monocytes % 8.8 08/28/19 06:18 Eosinophils % 0.1 08/28/19 06:18 Basophils % 0.1 08/28/19 06:18 Absolute Neutrophils 14.20 k/cumm (1.2-6.7) H 08/28/19 06:18 Absolute Lymphocytes 1.15 k/cumm (1.2-3.4) L 08/28/19 06:18 Absolute Monocytes 1.49 k/cumm (0.11-0.7) H 08/28/19 06:18 Absolute Eosinophils 0.02 k/cumm (0.0-0.7) 08/28/19 06:18 Absolute Basophils 0.02 k/cumm (0.0-0.2) 08/28/19 06:18 Sodium 137 mmol/L (136-145) 08/28/19 06:18 Potassium 4.2 mmol/L (3.5-5.1) 08/28/19 06:18 Chloride 99 mmol/L (98-107) 08/28/19 06:18 Carbon Dioxide 29.7 mmol/L (21.0-32.0) 08/28/19 06:18 Anion Gap 8.3 mmol/L (3-11) 08/28/19 06:18 BUN 12 mg/dL (7-18) 08/28/19 06:18 Creatinine 1.30 mg/dL (0.70-1.30) 08/28/19 06:18 Estimated GFR/1.73 m2 >= 60.00 (mL/min/1.73m2) 08/28/19 06:18 Glucose 197 mg/dL (74-106) H 08/28/19 06:18 Calcium 7.6 mg/dL (8.5-10.1) L 08/28/19 06:18 Phosphorus 2.7 mg/dL (2.6-4.7) 08/28/19 06:18 Magnesium 1.2 mg/dL (1.8-2.4) L 08/28/19 06:18 Ferritin 742 ng/mL (26-388) H 08/28/19 06:18 Total Bilirubin 3.1 mg/dL (0.2-1.0) H 08/28/19 06:18 AST 119 U/L (15-37) H 08/28/19 06:18 ALT 115 U/L (16-63) H 08/28/19 06:18 Alkaline Phosphatase 66 U/L (46-116) 08/28/19 06:18 C-Reactive Protein 21.76 mg/dL (0.0-0.3) H 08/28/19 06:18 Total Protein 6.5 g/dL (6.4-8.2) 08/28/19 06:18 Albumin 3.2 g/dL (3.4-5.0) L 08/28/19 06:18 Triglycerides 143 mg/dL (<150) 08/28/19 06:18 Total Cholesterol 286 mg/dL (<200) H 08/28/19 06:18 LDL Cholesterol, Calc 241 mg/dL (<100) H 08/28/19 06:18 HDL Cholesterol 17 mg/dL (40-60) L 08/28/19 06:18 Lipase 3875 U/L (73-393) H 08/28/19 06:18 Folate 4.6 ng/mL (8.6-20.0) L 08/28/19 06:18 Urine Opiates Screen Positive (Negative) A 08/27/19 23:35 Urine Methadone Screen Negative (Negative) 08/27/19 23:35 Ur Barbiturates Screen Negative (Negative) 08/27/19 23:35 Ur Tricyclics Screen Negative (Negative) 08/27/19 23:35 Ur Amphetamines Screen Negative (Negative) 08/27/19 23:35 U Benzodiazepines Scrn Positive (Negative) A 08/27/19 23:35 Urine Cocaine Screen Negative (Negative) 08/27/19 23:35 Ur THC Screen Negative (Negative) 08/27/19 23:35
[2019-08-29] MEDS: Haloperidol 5 MG/ML VIAL (00:29)
[2019-08-29] MEDS: Water,Injection,Sterile 10 ML VIAL (01:20)
[2019-08-29] MEDS: OLANZapine 10 MG VIAL IM (01:20)
[2019-08-29] MEDS: Normal Saline Flush 10 ML SYR IVP ×3 (03:51→13:49)
[2019-08-29] MEDS: FAMOTIDINE 20 MG/50 ML BAG 200 MG IVPB (04:43)
[2019-08-29] MEDS: Metoprolol 5 MG/5 ML VIAL IVP ×2 (04:43→10:38)
[2019-08-29] MEDS: Insulin Aspart 300 UNITS/3 ML PEN SC (04:57)
[2019-08-29] MEDS: chlordiazePOXIDE 25 MG CAP 100 MG PO (05:08)
[2019-08-29] MEDS: diazePAM 10 MG/2 ML SYR 20 MG IVP (05:08)
--- NOTE | 2019-08-29 05:39 | NUR.NOTE ---
Code britney called when pt refused to sit down despite teetering while standing. 2 RNs attempted to assist pt to bed, pt pushed us off and proceeded to jump across the bed and try to run out of the ICU. At this time, Pt moved to bed by 4 RNs, and then put in 4 point restraints with assistance of 8 RNs including 2 house supervisors, and the basket person.Nursing Note:
[2019-08-29] MEDS: PHENobarbital 130 MG/ML VIAL IVP ×4 (06:08→07:54)
--- NOTE | 2019-08-29 06:18 | NUR.NOTE ---
Pt has had a very difficult night, he has had episodes of accusing staff of kidnapping him, and he also asked nurses why were trying to castrate him when we were attempting to get a new IV site. Over the course of the night the pt has lost access to two IV sites from thrashing around and from the fall he had around 2330. pt has received one dose of phenobarbitol 130mg IVP, he is still thrashing in the bed, soaked in sweat, not answering my questions, occasional swearing and yelling, pt Respiratory rate is in the high 30s, low 40s. He is not responding to coaching to calm his breathing. Nursing Note:
[2019-08-29 06:44] LABS: HCT 41.9 % (40.0-50.0); HGB 13.9 g/dL (13.5-17.5); Mean Corp. HGB Concentration 33.2 g/dL (32.0-36.0); Mean Corpuscular Hemoglobin 33.6 pg (27.0-33.0); Mean Corpuscular Volume 101.2 fL (80-95); Mean Platelet Volume 12.1 fL (8.0-11.0); Platelet Count 131 x1000/uL (130-400); RBC 4.14 m/cumm (4.50-6.00); RBC Distribution Width 13.5 % (11.8-14.1); White Blood Cell Count 18.79 k/cumm (4.4-10.8)
--- NOTE | 2019-08-29 07:00 | DI.RAD_ITS ---
EXAM: XR PORTABLE CHEST AP INDICATION: dyspnea, hypoxemia. COMPARISON: XR PORTABLE CHEST AP from 08/28/2019 TECHNIQUE: 2D digital imaging was performed. FINDINGS: Leads overlie the chest. There are bibasilar densities representing atelectasis or infiltrates. Ther e has been no significant change. IMPRESSION: Bibasilar densities are present the atelectasis or infiltrates, stable. The exam is limited by lack of pulmonary inflation. DATA REPOSITORY: RADIATION DOSE DELIVERED:
[2019-08-29 07:05] LABS: ALT 91 U/L (16-63); AST 196 U/L (15-37); Albumin 2.8 g/dL (3.4-5.0); Alkaline Phosphatase 60 U/L (46-116); Anion Gap 10.6 mmol/L (3-11); BUN 17 mg/dL (7-18); CO2 24.4 mmol/L (21.0-32.0); CREATININE 1.24 mg/dL (0.70-1.30); Chloride 105 mmol/L (98-107); Glucose 184 mg/dL (74-106); Potassium 3.8 mmol/L (3.5-5.1); Sodium 140 mmol/L (136-145); Total Protein 5.8 g/dL (6.4-8.2)
[2019-08-29 07:08] LABS: Magnesium 1.8 mg/dL (1.8-2.4); NT-proBNP 455 pg/mL (<300)
--- NOTE | 2019-08-29 07:10 | W.MEDCONSULT ---
Date of service: 08/29/19 Time of Service: 07:10 Assessment and Plan Assessment and plan (1) Alcohol withdrawal delirium, acute, hyperactive: Status: Acute Assessment and plan: Continue sedation with combination of benzodiazepines and phenobarbital. Patient will need to be intubated to control his airway and then he can be managed w/ propofol drip or phenobarbital drip. check CT of head d/t closed head injury. (2) Acute pancreatitis: Status: Acute Assessment and plan: Keep n.p.o. Continue IV fluid hydration and Qualifiers: Acute pancreatitis complication: no infection or necrosis Pancreatitis type: alcohol induced Qualified Code(s): K85.20 - Alcohol induced acute pancreatitis without necrosis or infection (3) Evidence of airways hyperreactivity without diagnosis of asthma: Status: Acute Assessment and plan: check CXR to evaluate for parenchymal disease (i.e. fluid overload, aspiration pneumonia, COPD). will give iv corticosteroids and scheduled aerosolized bronchodilators. History of Present Illness History of Present Illness Chief Complaint: Delirium tremens Narrative: 39-year-old male with a history of alcoholism presents with acute alcoholic pancreatitis and subsequently developed acute alcohol withdrawal. He initially presented to the emergency department with nausea vomiting and abdominal pain on August 26, 2019 and was found to have acute pancreatitis with a lipase of [address] scan of his abdomen pelvis which showed fatty liver changes but no biliary dilatation or stones. Stranding was found around the head and body of the pancreas consistent with acute pancreatitis. No pancreatic pseudocyst or phlegmon was seen. Patient refused admission on August 26, 2019 but re-presented emergency department with worsening symptoms on August 27, 2019 and was admitted to the surgical service of Dr. Zhou. Patient has been exhibiting worsening symptoms of acute alcohol withdrawal including agitation including physical aggressiveness and confusion and delirium.'s also demonstrated tachycardia and diaphoresis. Dr. Zhou put him on CIWA protocol and initiated p.o. Serax and IV Valium. Dr. Zhou call me earlier this morning because of the staff's inability to control his symptoms with his current dosing of Valium. Patient's been receiving 10 mg of Valium IV every 10 minutes has had up to 180 mg of Valium when I was called for consultation. I have since to increase the dosage of his Valium to 20-40 mg IV every 10 minutes with no limit to the total dosage. It is not unusual in severe cases of DTs for patient require up to 2000 mg of Valium in a 48-hour period. Because the dose of 20 to 40 mg of Valium was not able to adequately sedate him I have added phenobarbital as an adjunct in a dose of 130-2 at 60 mg IV every 15 minutes. After 2 doses of phenobarbital the patient has become become more calm. We will continue to use combination of Valium and phenobarbital alternating every 10 to 15 minutes. Patient may need intubation for airway protection. Nurses did report that they have had to put supplemental oxygen on him due to desaturations as low as 76%. He has been on nasal cannula anywhere from 1 to 3 L/min per nasal cannula. However currently he is on room air his oxygen saturation is holding at 94%. He is exhibiting some audible wheezing. Nurses report that he did fall out of bed and hit his head before he got put into four-point restraints and therefore CT scan of his head was ordered. CT was not available last night but is now currently available. Now that we have him more calm and manageable we will proceed with getting a chest x-ray to evaluate his respiratory symptoms and send him for CT scan of his head looking for any other causes for his agitation from a closed head injury. Review of Systems Unobtainable due to mental status [facility] Medical History Alcohol dependence with withdrawal delirium (Acute) Alcohol withdrawal delirium, acute, hyperactive (Acute) ETOH abuse (Chronic) No active medical problems (Acute) Surgical History S/P hernia repair (Inactive) Social History Smoking/Tobacco Use Status: Current every day Alcohol Intake: current Alcohol Intake frequency: 3 or more drinks per day Alcohol type: beer Drug use: Daily Substance use type: marijuana Do you feel safe at home: Yes Do you feel safe in your relationship?: Yes Exam Narrative Exam Narrative: Morbidly obese young male who is agitated and restless when he is aroused. When he is not aroused he is more calm. He will open his eyes and look at me when I call his name. A tactile stimulation and he starts getting agitated and moving his limbs about the bed try to get out of his restraints. He is verbal but not coherent. Glascow coma score of 10 (E3, V2, and M5). HEENT is remarkable for dry tongue and small oral cavity. I cannot get him to voluntarily open up his mouth to get a clear view of his posterior oropharynx. Neck is supple short and fat with no JVD normal carotid pulses no bruits. Lungs reveal diffuse expiratory wheezes bilaterally. Heart is regular but tachycardic without murmur. Abdomen is obese and distended with hypoactive bowel sounds Extremities without peripheral cyanosis or edema. He spontaneously moves all 4 extremities and attempts to get out of his limb restraints. Neuro exam is nonfocal he is not oriented he is lethargic but arousable to calling his name or to tactile stimulation which will get him agitated. He has no focal motor deficits. No focal sensory deficits. Cranial nerves could not be completely evaluated due to his mental status. His extraocular motion appears to be intact. He has no facial asymmetry with good symmetrical mimetic facial muscle movement. Results Last Vital Signs Temp 37.2 C 08/29/19 06:00 Pulse 137 H 08/29/19 06:02 Resp 34 H 08/29/19 06:00 BP 120/67 08/29/19 06:02 Pulse Ox 90 L 08/29/19 06:02 Labs Result diagrams: 08/29/19 06:05 08/29/19 06:05 Labs: Laboratory Results - last 24 hr 08/28/19 08/28/19 08/29/19 06:18 06:18 06:00 Sodium Potassium Chloride Carbon Dioxide Anion Gap BUN Creatinine Estimated GFR/1.73 m2 Glucose Calcium Magnesium Cancelled Ferritin 742 H Total Bilirubin AST ALT Alkaline Phosphatase Total Protein Albumin Triglycerides 143 Total Cholesterol 286 H LDL Cholesterol, Calc 241 H HDL Cholesterol 17 L Lipase 3875 H Folate 4.6 L 08/29/19 06:05 Sodium 140 Potassium 3.8 Chloride 105 Carbon Dioxide 24.4 Anion Gap 10.6 BUN 17 Creatinine 1.24 Estimated GFR/1.73 m2 >= 60.00 Glucose 184 H Calcium 7.0 L Magnesium Ferritin Total Bilirubin 6.0 H AST 196 H ALT 91 H Alkaline Phosphatase 60 Total Protein 5.8 L Albumin 2.8 L Triglycerides Total Cholesterol LDL Cholesterol, Calc HDL Cholesterol Lipase Folate
[2019-08-29 07:31] LABS: Lipase 16529 U/L (73-393)
--- NOTE | 2019-08-29 07:45 | DI.VRAD_ITS ---
PROCEDURE INFORMATION: Exam: XR Chest, 1 View Exam date and time: 08/29/2019 7:24 AM Age: 39 years old Clinical indication: Dyspnea and other: Hypoxemia; Patient HX: Dyspnea, hypoxemia TECHNIQUE: Imaging protocol: XR of the chest Views: 1 view. COMPARISON: CR XR PORTABLE CHEST AP 08/28/2019 8:18 AM FINDINGS: Lungs: There are lower lung volumes and poor inspiration. Linear opacities are seen at the lung bases and perihilar regions. Pleural space: No pleural effusion or pneumothorax is identified. Heart/Mediastinum: Unremarkable. No cardiomegaly. Diaphragm: There is asymmetric elevation of the right hemidiaphragm. Bones/joints: Osseous structures appear unremarkable. IMPRESSION: 1. Poor inspiration and low lung volumes. 2. Linear atelectatic changes. 3. Bibasilar linear atelectasis and consolidation. In the appropriate clinical setting, this could represent pneumonia. Dictated and Authenticated by: Fahad Aguirre MD. Ordering:[facility] Zeina Robles MD
[2019-08-29 07:51] LABS: Absolute Lymphocyte Count 1.32 k/cumm (1.2-3.4); Absolute Neutrophil Count 16.35 k/cumm (1.2-6.7)
[2019-08-29 07:52] LABS: Absolute Basophil Count 0.19 k/cumm (0.0-0.2); Absolute Monocyte Count 0.94 k/cumm (0.11-0.7)
[2019-08-29 07:53] LABS: Diff Comment Manual Differential; Nucleated RBC 1 /100WBC
[2019-08-29 07:54] LABS: Anisocytosis 1+; Polychromasia Present
[2019-08-29] MEDS: PROPOFOL 1,000 MG/100 ML BTL 50 MG (07:55)
[2019-08-29] MEDS: Etomidate 20 MG/10 ML VIAL IVP (07:55)
--- NOTE | 2019-08-29 08:00 | DI.RAD_ITS ---
EXAM: XR PORTABLE CHEST AP 8:20 a.m. CLINICAL HISTORY: intubation. TECHNIQUE: 2D digital imaging was performed. COMPARISON: XR PORTABLE CHEST AP POST LINE from 08/29/2019 XR PORTABLE CHEST AP from 08/29/2019 FINDINGS: An endotracheal tube has been inserted which lies above the bryon. Lungs are again expiratory. The re are increased bibasilar densities which may be slightly increased when compared with the previous exam. No effusions are visible. Cardiac silhouette unchanged. IMPRESSION: Limited exam. Status post endotracheal tube. Increasing bibasilar densities. DATA REPOSITORY: RADIATION DOSE DELIVERED:
[2019-08-29] MEDS: PROPOFOL 1,000 MG/100 ML BTL 33.003 MG IVPB (08:05)
--- NOTE | 2019-08-29 08:24 | W.ED.PROC ---
Date of service: 08/29/19 Time of Service: 08:00 Procedures Intubation Time out performed: Yes sedative: Etomidate Mg Given: 20 paralytic: Rocuronium Mg Given: 100 Laryngoscope: Amairani Assist Device Used: fiberoptic device ET Tube Size: 8 ET Tube Uncuffed: Yes Tube Secured Depth (cm): 25 Tube Secured Location: lips Tube Placement Confirmation: visualized tube passing through cords, equal breath sounds bilaterally and confirmation by capnometry Intubation Complications: difficult intubation and hypoxia Narrative Narrative Narrative: I was called to the ICU to intubate this patient who is admitted for pancreatitis and has gone into alcohol withdrawal. He has not responded to benzodiazepines or phenobarbital. His mental status continues to worsen. His respiratory status continues to worsen. Hemodynamically he is tachycardic and hypertensive. Saturations on nasal cannula oxygen mid 90s. Patient agitated and confused. Audible wheezing heard. Elected to use RSI for safe intubation. Patient was left on nasal cannula oxygen. He was medicated with 20 mg of etomidate and 100 mg of rocuronium. Initial attempt at intubation was done with a 4 MAC blade. There were fair amount of secretions present which were suctioned out. Brief glimpse of the cords was seen but no attempt to pass tube made. Patient desaturated and intubation attempt was aborted. Oral airway placed and patient back to backup into the 90s. Second intubation attempt done with a glide scope. This time there were no issues and the tube was advanced through the cords under direct visualization. He has breath sounds bilaterally. He has good end-tidal CO2. Tube secured at 25 at the lips. Chest x-ray ordered. Further management of patient per surgery and hospitalist.
[2019-08-29] MEDS: Rocuronium 50 MG/5 ML SYR 100 MG IVP (08:30)
--- NOTE | 2019-08-29 08:30 | DI.RAD_ITS ---
EXAM: XR PORTABLE CHEST AP POST LINE INDICATION: post intubation. COMPARISON: No exams were available for comparison TECHNIQUE: 2D digital imaging was performed. FINDINGS: An endotracheal tube has been inserted. The tip lies at the level of the aorta or aortic arch. The lungs are expiratory. There are increased densities in both lungs representing atelectasis or infil trates. The findings may have slightly increased when compared with the previous exam. There is no gross evidence of an effusion. No pneumothorax is seen. IMPRESSION: Satisfactory positioning of endotracheal tube. DATA REPOSITORY: RADIATION DOSE DELIVERED:
[2019-08-29 08:53] LABS: BE 0.5 mmol/L (-3-3); HCO3 27 mmol/L (22-28); pCO2 58 mmHg (34-47); pH 7.28 (7.35-7.45); pO2 92 mmHg (83-108); sO2 97 % (94-98); tCO2 25 mmol/L (22-29)
[2019-08-29 08:55] LABS: FIO2 100 %; Site Right Radial
--- NOTE | 2019-08-29 08:57 | DI.VRAD_ITS ---
PROCEDURE INFORMATION: Exam: XR Chest, 1 View Exam date and time: 08/29/2019 8:27 AM Age: 39 years old Clinical indication: Other: Post intubation TECHNIQUE: Imaging protocol: XR of the chest Views: 1 view. COMPARISON: XR PORTABLE CHEST AP 08/29/2019 7:21 AM (report not provided) FINDINGS: Tubes, catheters and devices: Patient has been intubated, with tip of the tube approximately 2.4 cm proximal to the bryon. Lungs: There are mildly increasing patchy bibasilar airspace opacities. Pleural space: Unremarkable. No pleural effusion. No pneumothorax. Heart/Mediastinum: The cardiomediastinal silhouette is stable in appearance allowing for differences in positioning. Bones/joints: Unremarkable. IMPRESSION: 1. Intubated since earlier the same day, with tip of tube approximately 2.4 cm proximal to bryon. 2. Mildly increasing patchy bibasilar airspace opacities. Dictated and Authenticated by: Fidel Jules MD. Ordering:JOSÉ MIGUEL Briscoe MD
[2019-08-29] MEDS: Albuterol/Ipratropium 3 ML UPD VIAL UPD ×2 (09:12→12:06)
[2019-08-29 09:39] LABS: C-Reactive Protein > 25.00 mg/dL (0.0-0.3)
--- NOTE | 2019-08-29 10:11 | W.NUTCONSULT ---
Date of service: 08/29/19 Time of Service: 10:11 Nutritional Consult ASSESSMENT: 39 year old obese male admitted with alcohol withdrawl delirium and acute pancreatitis requiring intubation. PMH: long standing hx of alcohol abuse. BMI 35 indicating class 2 obesity. Estimated needs based on adjusted body weight of 81 kg. Estimated needs: 5160-7596 kcal (25-30 kcal/ABW), 81-97 g protein (1.0-1.2 g pro/ABW), 2400 ml (23 ml/kg). Currently fluid overloaded, affecting lab values. Meds include thiamine, MVI, folic acid. NPOx3 days. MD recommends TPN to start once fluids more regulated, most likely to initiate TPN 08/30/19. Has a central line in place. At high nutritional risk in view of extended NPO status due to intubation/pancreatits/delerium. Recommend following TPN order:Clinimix (11/06) 2000 ml: Amino Acids 5%/Dextrose 15% (providing 100 grams protein, 300 grams glucose= 1490 kcal)@83cc/hour. Lipids 20% 250 ml/day (providing 500 kcal, 55 g fat). Standard Electrolytes, MVI and Trace elements. Twice daily glucose monitoring, Daily CBC, CMP, Mg, Phos until normalized, then weekly. NUTRITIONAL DIAGNOSIS: Hx of Excessive Alcohol intake extended NPO status, inability to take in required nutrients and fluids by mouth INTERVENTION: NPO Initiate TPN MONITORING AND EVALUATION: daily weights, labs Time Spent in Nutritional Counseling and Treatment: 20 min spent in making recommendations for TPN
--- NOTE | 2019-08-29 10:23 | ROE_ITS ---
DATE: AUGUST 29, 2019 Preoperative Diagnosis: Need for central venous access Postoperative Diagnosis: same Operation: Placement of left subclavian central line Anesthesia: IV sedation Surgeon: Lanny Zhou D.O. Estimated Blood Loss: 5 cc. Complications: None Indications: Mr. Cobb is a 39 year-old male in the Intensive Care Unit with acute pancreatitis and withdrawal. He does need central venous access. There is no one to give consent at this time. Procedure: The area in the left subclavian was prepped and draped in the usual sterile fashion using a ChloraPrep scrub solution. He still has IV sedation onboard from his recent intubation. A Cook needle was used to cannulate the left subclavian vein with return of dark red nonpulsatile blood flow. Guidewire was used and inserted into the needle. The needle was removed. A small ericka was made with #11 blade and dilator was inserted around the guidewire keeping good control of the guidewire at all times. The dilator was removed and the previously flushed catheter was inserted over the wire up to the #15 rajinder. The guidewire was removed. All three ports were aspirated and flushed. There was dark red nonpulsatile blood flow. The catheter was then capped. The line was sewn in place and sterile dressing was applied. Portable chest x-ray showed good position and no pneumothorax. The patient remained in the Intensive Care Unit throughout the entire procedure.
--- NOTE | 2019-08-29 10:33 | W.PM.PROGNOT ---
Date of Service Date of service: 08/29/19 Time of Service: 10:33 Assessment and Plan Assessment and plan (1) Respiratory failure requiring intubation: Status: Acute (2) SIRS (systemic inflammatory response syndrome): Status: Acute (3) Aspiration pneumonitis: Status: Suspected (4) Severe acute pancreatitis: Status: Acute Assessment and plan: pt b/c pyschotic and unstable requiring unsafe amounts of meds that required incubation. Pt labs this am shows an increase in WBC and lipase. repeat CT: shows severe pancreatitis. ABG- pd SOFA 10 pt continues to decline this am and having increased oxygen requirements. He needs transfer to ICU for continued support ABX/lovenox/protonix/propafol/metorpolol pt received lasix w/ minimal response central line plaec (5) Alcohol withdrawal delirium, acute, hyperactive: Status: Acute Subjective Subjective Interval history since last seen: Patient is becoming progressively more combative agitated and restless throughout the night. At about 4 AM he had not bonded to large doses of Valium, Haldol, Zyprexa. He was climbing out of bed fall, and pulled out all his IVs most times. At that point the hospital service was consulted for consideration of intubation and sedation. Dr. carlos saw the patient and has determined appropriate course of action. Patient was sedated and intubated and will be maintained on propofol. He did fall so a stat CT of the head has been ordered. The patient has been too agitated prior but we will send him down for CT. His bilirubin and lipase and white count have spiked today. We will repeat the CT scan today. Exam Const Other: pt intubated and sedated. last PM pt b/c more agitated and restless. CXR- shows bibasilar infilt vs atelectasis and pleural eff HENMT Other: all neg pt did hit his head last pm CT head neg Resp Other: intubated FiO2 100% sat 98% peep10 TV 450 Cardio Rate: tachycardic Rhythm: regular rhythm GI Other: distended no peritonitis. min BS Skin Other: intact Psych Other: pt was having delerium and acute psychotic episode lsat night that did not respond to routine protocol Objective Objective Clinical Data: Abnormal lab results 08/29/19 08/29/19 08/29/19 Range/Units 06:05 06:05 06:05 WBC 18.79 H (4.4-10.8) k/cumm RBC 4.14 L (4.50-6.00) m/cumm MCV 101.2 H (80-95) fL MCH 33.6 H (27.0-33.0) pg MPV 12.1 H (8.0-11.0) fL Absolute Neutrophils 16.35 H (1.2-6.7) k/cumm Absolute Monocytes 0.94 H (0.11-0.7) k/cumm ABG pH (7.35-7.45) ABG pCO2 (34-47) mmHg Glucose 184 H (74-106) mg/dL Calcium 7.0 L (8.5-10.1) mg/dL Total Bilirubin 6.0 H (0.2-1.0) mg/dL AST 196 H (15-37) U/L ALT 91 H (16-63) U/L C-Reactive Protein > 25.00 H (0.0-0.3) mg/dL NT-Pro-B Natriuret Pep 455 H (<300) pg/mL Total Protein 5.8 L (6.4-8.2) g/dL Albumin 2.8 L (3.4-5.0) g/dL Lipase 51563 H (73-393) U/L 08/29/19 Range/Units 08:47 WBC (4.4-10.8) k/cumm RBC (4.50-6.00) m/cumm MCV (80-95) fL MCH (27.0-33.0) pg MPV (8.0-11.0) fL Absolute Neutrophils (1.2-6.7) k/cumm Absolute Monocytes (0.11-0.7) k/cumm ABG pH 7.28 L (7.35-7.45) ABG pCO2 58 H (34-47) mmHg Glucose (74-106) mg/dL Calcium (8.5-10.1) mg/dL Total Bilirubin (0.2-1.0) mg/dL AST (15-37) U/L ALT (16-63) U/L C-Reactive Protein (0.0-0.3) mg/dL NT-Pro-B Natriuret Pep (<300) pg/mL Total Protein (6.4-8.2) g/dL Albumin (3.4-5.0) g/dL Lipase (73-393) U/L Vital Signs Temperature 37.2 C 08/29/19 06:00 Temperature Source Temporal Artery Scan 08/29/19 06:00 Pulse 118 H 08/29/19 10:01 Pulse Rhythm Regular 08/28/19 00:00 Pulse 119 H 08/29/19 10:01 Respiratory Rate 18 08/29/19 10:15 Respiratory Effort Nasal Flaring 08/29/19 07:00 Respiratory Depth Normal 08/29/19 03:29 Respiratory Pattern Normal 08/29/19 03:29 Blood Pressure 121/80 08/29/19 10:01 Blood Pressure Mean 90 08/29/19 10:01 Blood Pressure Position Sitting 08/27/19 10:47 Pulse Oximetry 99 08/29/19 10:15 Respiratory End-tidal CO2 32 08/29/19 10:15 Oxygen Delivery Method Mechanical Ventilator 08/29/19 09:12 Oxygen Flow Rate 0 08/29/19 09:12 Fraction of Inspired Oxygen (FIO2) 100 08/29/19 10:15 Pain Level 0 08/29/19 03:29 Intake & Output 08/28/19 08/28/19 08/29/19 11:59 23:59 11:59 Intake Total 3061.667 / 9140.000 5655 / 9140.000 1190.233 / 1190.233 Output Total 425 / 900 475 / 900 Balance 2636.667 / 8240.000 5180 / 8240.000 1190.233 / 1190.233 Weight 109.9 kg Intake: IV 2986.667 / 8740.000 5330 / 8740.000 1130.233 / 1130.233 Oral 75 / 400 325 / 400 60 / 60 Output: Urine 425 / 900 475 / 900 Other: Urine Color Midd[place] Dark Carolin Light Carolin [place] Urine Appearance Clear Clear Urine Odor None Strong Comment Pt's urine is dark, very concentrated, and patient has gone several hundred mls over 8 hours. patient voided on floor so exact amount is unknown pt incontinent at this time. Offering urinal/toilet, pt declining stating we need to let him go home. pt has had multiple occurances of incontinence, urine appears dark yellow to orange. Voiding Methods Bedside Commode Urinal Laboratory Results WBC 18.79 k/cumm (4.4-10.8) H 08/29/19 06:05 RBC 4.14 m/cumm (4.50-6.00) L 08/29/19 06:05 Hgb 13.9 g/dL (13.5-17.5) D 08/29/19 06:05 Hct 41.9 % (40.0-50.0) 08/29/19 06:05 MCV 101.2 fL (80-95) H 08/29/19 06:05 MCH 33.6 pg (27.0-33.0) H 08/29/19 06:05 MCHC 33.2 g/dL (32.0-36.0) 08/29/19 06:05 RDW 13.5 % (11.8-14.1) 08/29/19 06:05 Plt Count 131 x1000/uL (130-400) 08/29/19 06:05 MPV 12.1 fL (8.0-11.0) H 08/29/19 06:05 Immature Gran % 0.0 % 08/29/19 06:05 Neutrophils % 78.0 08/29/19 06:05 Band Neutrophils % 9.0 % 08/29/19 06:05 Lymphocytes % 7.0 08/29/19 06:05 Monocytes % 5.0 08/29/19 06:05 Eosinophils % 0.0 08/29/19 06:05 Basophils % 1.0 08/29/19 06:05 Absolute Neutrophils 16.35 k/cumm (1.2-6.7) H 08/29/19 06:05 Absolute Lymphocytes 1.32 k/cumm (1.2-3.4) 08/29/19 06:05 Absolute Monocytes 0.94 k/cumm (0.11-0.7) H 08/29/19 06:05 Absolute Eosinophils 0.00 k/cumm (0.0-0.7) 08/29/19 06:05 Absolute Basophils 0.19 k/cumm (0.0-0.2) 08/29/19 06:05 Nucleated RBCs 1 /100WBC 08/29/19 06:05 Differential Comment Manual differential 08/29/19 06:05 RBC Morphology See below 08/29/19 06:05 Polychromasia Present 08/29/19 06:05 Anisocytosis 1+ 08/29/19 06:05 ABG Sample Site Right radial 08/29/19 08:47 ABG pH 7.28 (7.35-7.45) L 08/29/19 08:47 ABG pCO2 58 mmHg (34-47) H 08/29/19 08:47 ABG pO2 92 mmHg (83-108) 08/29/19 08:47 ABG HCO3 27 mmol/L (22-28) 08/29/19 08:47 ABG Total CO2 25 mmol/L (22-29) 08/29/19 08:47 ABG O2 Saturation 97 % (94-98) 08/29/19 08:47 ABG Base Excess 0.5 mmol/L (-3-3) 08/29/19 08:47 Oxygen Liter Flow R15/vt450/peep10 L 08/29/19 08:47 FiO2 100 % 08/29/19 08:47 Sodium 140 mmol/L (136-145) 08/29/19 06:05 Potassium 3.8 mmol/L (3.5-5.1) 08/29/19 06:05 Chloride 105 mmol/L (98-107) 08/29/19 06:05 Carbon Dioxide 24.4 mmol/L (21.0-32.0) 08/29/19 06:05 Anion Gap 10.6 mmol/L (3-11) 08/29/19 06:05 BUN 17 mg/dL (7-18) 08/29/19 06:05 Creatinine 1.24 mg/dL (0.70-1.30) 08/29/19 06:05 Estimated GFR/1.73 m2 >= 60.00 (mL/min/1.73m2) 08/29/19 06:05 Glucose 184 mg/dL (74-106) H 08/29/19 06:05 Calcium 7.0 mg/dL (8.5-10.1) L 08/29/19 06:05 Phosphorus 2.7 mg/dL (2.6-4.7) 08/28/19 06:18 Magnesium 1.8 mg/dL (1.8-2.4) 08/29/19 06:05 Ferritin 742 ng/mL (26-388) H 08/28/19 06:18 Total Bilirubin 6.0 mg/dL (0.2-1.0) H 08/29/19 06:05 AST 196 U/L (15-37) H 08/29/19 06:05 ALT 91 U/L (16-63) H 08/29/19 06:05 Alkaline Phosphatase 60 U/L (46-116) 08/29/19 06:05 C-Reactive Protein > 25.00 mg/dL (0.0-0.3) H 08/29/19 06:05 NT-Pro-B Natriuret Pep 455 pg/mL (<300) H 08/29/19 06:05 Total Protein 5.8 g/dL (6.4-8.2) L 08/29/19 06:05 Albumin 2.8 g/dL (3.4-5.0) L 08/29/19 06:05 Triglycerides 143 mg/dL (<150) 08/28/19 06:18 Total Cholesterol 286 mg/dL (<200) H 08/28/19 06:18 LDL Cholesterol, Calc 241 mg/dL (<100) H 08/28/19 06:18 HDL Cholesterol 17 mg/dL (40-60) L 08/28/19 06:18 Lipase 24308 U/L (73-393) H 08/29/19 06:05 Folate 4.6 ng/mL (8.6-20.0) L 08/28/19 06:18 Urine Opiates Screen Positive (Negative) A 08/27/19 23:35 Urine Methadone Screen Negative (Negative) 08/27/19 23:35 Ur Barbiturates Screen Negative (Negative) 08/27/19 23:35 Ur Tricyclics Screen Negative (Negative) 08/27/19 23:35 Ur Amphetamines Screen Negative (Negative) 08/27/19 23:35 U Benzodiazepines Scrn Positive (Negative) A 08/27/19 23:35 Urine Cocaine Screen Negative (Negative) 08/27/19 23:35 Ur THC Screen Negative (Negative) 08/27/19 23:35
[2019-08-29] MEDS: PROPOFOL 1,000 MG/100 ML BTL 33 MG IVPB ×2 (10:36→13:32)
[2019-08-29] MEDS: Pantoprazole 40 MG VIAL IVP (10:36)
[2019-08-29] MEDS: Enoxaparin 40 MG/0.4 ML SYR SC (10:37)
[2019-08-29] MEDS: Normal Saline - Diluent 50 ML VIAL IV (10:52)
[2019-08-29] MEDS: Omnipaque 350 MG/ML 100 ML BTL IJ (10:53)
[2019-08-29 11:14] LABS: Hemoglobin A1C 6.1 % (3.8-5.6)
--- NOTE | 2019-08-29 11:37 | DI.CT_ITS ---
EXAM: CT ABDOMEN PELVIS W CLINICAL HISTORY: pancreatitis TECHNIQUE: Post IV contrast COMPARISON: CT ABDOMEN PELVIS W from 08/26/2019 FINDINGS: There are moderate-sized bilateral pleural effusions and adjacent atelectasis. A nasogastric tube i s seen. The stomach is decompressed. There are increasing inflammatory changes around the pancreas. There is no evidence of hemorrhage. There is now some fluid seen in the paracolic gutters extendi ng into the pelvis. There is no bowel dilatation. Severe fatty infiltration of the liver is noted. The spleen, adrenals, kidneys as well as gallbladder are unremarkable. A Tenorio catheter is noted in the bladder. There is mild body wall edema. IMPRESSION: Evidence of severe pancreatitis. There is increasing inflammation. There is no evidence of pseudocy st. Increased bilateral pleural effusions and basilar atelectasis.
--- NOTE | 2019-08-29 11:38 | DI.CT_ITS ---
EXAM: CT HEAD WO CLINICAL HISTORY: fall TECHNIQUE: Noncontrast COMPARISON: CT ABDOMEN PELVIS W from 08/29/2019 FINDINGS: No intracranial hemorrhage or skull fracture is seen. There is no evidence of mass or infarct. The ventricles are normal in size. There is ethmoid sinus mucosal thickening and thickening of the nasa l mucosa. There is mild mucosal thickening of the maxillary sinuses. The mastoid air cells appear c lear. A nasal tube is seen. IMPRESSION: No acute abnormality.
--- NOTE | 2019-08-29 11:57 | W.PM.PROGNOT ---
Date of Service Date of service: 08/29/19 Time of Service: 11:58 Assessment and Plan Assessment and plan (1) Respiratory failure requiring intubation: Status: Acute Assessment and plan: Likely multifactorial - due to alcohol withdrawal, possible aspiration with bronchospasm, iatrogenic fluid overload. Now on vent. Repeat a stat ABG. Expect a prolonged ventilator course. Treat with scheduled/prn nebs, abx (primaxin), IV steroids. Consider transfer to a tertiary care facility. Needs daily abg, sedation vacation, daily CXR. (2) Severe acute pancreatitis: Status: Acute Assessment and plan: Very concerning on imaging from today. No evidence of pseudocyst. Abx upgraded to primaxin. NPO. Consider starting TPN tomorrow. SOFA score of 10: predicted mortality rate is 50%. Consider transfer to a tertiary care facility. (3) Acute CHF: Status: Acute Assessment and plan: Iatrogenic. Will hold off on aggressive IVF at this time; will give lasix 20 mg IV x1. (4) Aspiration pneumonitis: Status: Suspected Assessment and plan: Started on primaxin, nebs, solumedrol. (5) SIRS (systemic inflammatory response syndrome): Status: Acute Assessment and plan: likely predominantly due to pancreatitis. SOFA score of 10 is very concerning, and predicted mortality is 50%. (6) Evidence of airways hyperreactivity without diagnosis of asthma: Status: Acute Assessment and plan: Likely triggered by aspiration of refluxed gastric acid. Now s/p intubation. Continue PPI, IV solumedrol, nebs, symbicort. (7) Alcohol withdrawal delirium, acute, hyperactive: Status: Acute Assessment and plan: S/p intubation, now on propofol. Resume IV MVI/thiamine when respiratory status permits. (8) ETOH abuse: Status: Chronic Assessment and plan: Holding banana bag for today given fluid overload, but writing for IV thiamine. (9) DVT prophylaxis: Status: Acute Assessment and plan: Lovenox SC (10) Discharge planning issues: Status: Acute Assessment and plan: Full code Consider transfer to a tertiary care facility due to severity of pancreatitis and likely prolonged ventilator requirement. SOFA score: 10 Predicted mortality rate is 50%. Condition critical. Prognosis guarded to poor. Total Critical Care Time 1 hour Subjective Subjective Patient reports: no new complaints Interval history since last seen: Mr Solo has been stable on the vent since intubation this morning; sedated with propofol. He just returned from CT head and abdomen/pelvis. CT head is normonal. CT abdomen/pelvis is still pending - radiology is looking for the report. Last Vital Signs Temp 37.2 C 08/29/19 06:00 Pulse 115 H 08/29/19 10:38 Resp 18 08/29/19 10:15 BP 121/80 08/29/19 10:38 Pulse Ox 99 08/29/19 10:15 Exam Narrative Exam Narrative: General: Intubated, sedated HEENT: Eyes closed, ET tube in place Heart: RRR, mildly tachycardic Lungs: Diminished breath sounds on vent Abdomen: soft, distended, hypoactive bowel sounds Extremities: no edema BLE's, no c/c, 2+ B pedal pulses Objective Objective Clinical Data: Abnormal lab results 08/29/19 08/29/19 08/29/19 Range/Units 06:05 06:05 06:05 WBC 18.79 H (4.4-10.8) k/cumm RBC 4.14 L (4.50-6.00) m/cumm MCV 101.2 H (80-95) fL MCH 33.6 H (27.0-33.0) pg MPV 12.1 H (8.0-11.0) fL Absolute Neutrophils 16.35 H (1.2-6.7) k/cumm Absolute Monocytes 0.94 H (0.11-0.7) k/cumm ABG pH (7.35-7.45) ABG pCO2 (34-47) mmHg Glucose 184 H (74-106) mg/dL Hemoglobin A1c (3.8-5.6) % Calcium 7.0 L (8.5-10.1) mg/dL Total Bilirubin 6.0 H (0.2-1.0) mg/dL AST 196 H (15-37) U/L ALT 91 H (16-63) U/L C-Reactive Protein > 25.00 H (0.0-0.3) mg/dL NT-Pro-B Natriuret Pep 455 H (<300) pg/mL Total Protein 5.8 L (6.4-8.2) g/dL Albumin 2.8 L (3.4-5.0) g/dL Lipase 74172 H (73-393) U/L 08/29/19 08/29/19 Range/Units 06:05 08:47 WBC (4.4-10.8) k/cumm RBC (4.50-6.00) m/cumm MCV (80-95) fL MCH (27.0-33.0) pg MPV (8.0-11.0) fL Absolute Neutrophils (1.2-6.7) k/cumm Absolute Monocytes (0.11-0.7) k/cumm ABG pH 7.28 L (7.35-7.45) ABG pCO2 58 H (34-47) mmHg Glucose (74-106) mg/dL Hemoglobin A1c 6.1 H (3.8-5.6) % Calcium (8.5-10.1) mg/dL Total Bilirubin (0.2-1.0) mg/dL AST (15-37) U/L ALT (16-63) U/L C-Reactive Protein (0.0-0.3) mg/dL NT-Pro-B Natriuret Pep (<300) pg/mL Total Protein (6.4-8.2) g/dL Albumin (3.4-5.0) g/dL Lipase (73-393) U/L Vital Signs Temperature 37.2 C 08/29/19 06:00 Temperature Source Temporal Artery Scan 08/29/19 06:00 Pulse 118 H 08/29/19 10:01 Pulse Rhythm Regular 08/28/19 00:00 Pulse 119 H 08/29/19 10:01 Respiratory Rate 18 08/29/19 10:15 Respiratory Effort Nasal Flaring 08/29/19 07:00 Respiratory Depth Normal 08/29/19 03:29 Respiratory Pattern Normal 08/29/19 03:29 Blood Pressure 121/80 08/29/19 10:01 Blood Pressure Mean 90 08/29/19 10:01 Blood Pressure Position Sitting 08/27/19 10:47 Pulse Oximetry 99 08/29/19 10:15 Respiratory End-tidal CO2 32 08/29/19 10:15 Oxygen Delivery Method Mechanical Ventilator 08/29/19 09:12 Oxygen Flow Rate 0 08/29/19 09:12 Fraction of Inspired Oxygen (FIO2) 100 08/29/19 10:15 Pain Level 0 08/29/19 03:29 Intake & Output 08/28/19 08/28/19 08/29/19 11:59 23:59 11:59 Intake Total 3061.667 / 9140.000 5655 / 9140.000 1200.233 / 1200.233 Output Total 425 / 900 475 / 900 Balance 2636.667 / 8240.000 5180 / 8240.000 1200.233 / 1200.233 Weight 109.9 kg Intake: IV 2986.667 / 8740.000 5330 / 8740.000 1140.233 / 1140.233 Oral 75 / 400 325 / 400 60 / 60 Output: Urine 425 / 900 475 / 900 Other: Urine Color [place] Dark [place] Light [place] Urine Appearance Clear Clear Urine Odor None Strong Comment Pt's urine is dark, very concentrated, and patient has gone several hundred mls over 8 hours. patient voided on floor so exact amount is unknown pt incontinent at this time. Offering urinal/toilet, pt declining stating we need to let him go home. pt has had multiple occurances of incontinence, urine appears dark yellow to orange. Voiding Methods Bedside Commode Urinal Laboratory Results WBC 18.79 k/cumm (4.4-10.8) H 08/29/19 06:05 RBC 4.14 m/cumm (4.50-6.00) L 08/29/19 06:05 Hgb 13.9 g/dL (13.5-17.5) D 08/29/19 06:05 Hct 41.9 % (40.0-50.0) 08/29/19 06:05 MCV 101.2 fL (80-95) H 08/29/19 06:05 MCH 33.6 pg (27.0-33.0) H 08/29/19 06:05 MCHC 33.2 g/dL (32.0-36.0) 08/29/19 06:05 RDW 13.5 % (11.8-14.1) 08/29/19 06:05 Plt Count 131 x1000/uL (130-400) 08/29/19 06:05 MPV 12.1 fL (8.0-11.0) H 08/29/19 06:05 Immature Gran % 0.0 % 08/29/19 06:05 Neutrophils % 78.0 03/06/20 06:05 Band Neutrophils % 9.0 % 08/29/19 06:05 Lymphocytes % 7.0 08/29/19 06:05 Monocytes % 5.0 08/29/19 06:05 Eosinophils % 0.0 08/29/19 06:05 Basophils % 1.0 08/29/19 06:05 Absolute Neutrophils 16.35 k/cumm (1.2-6.7) H 08/29/19 06:05 Absolute Lymphocytes 1.32 k/cumm (1.2-3.4) 08/29/19 06:05 Absolute Monocytes 0.94 k/cumm (0.11-0.7) H 08/29/19 06:05 Absolute Eosinophils 0.00 k/cumm (0.0-0.7) 08/29/19 06:05 Absolute Basophils 0.19 k/cumm (0.0-0.2) 08/29/19 06:05 Nucleated RBCs 1 /100WBC 08/29/19 06:05 Differential Comment Manual differential 08/29/19 06:05 RBC Morphology See below 08/29/19 06:05 Polychromasia Present 08/29/19 06:05 Anisocytosis 1+ 08/29/19 06:05 ABG Sample Site Right radial 08/29/19 08:47 ABG pH 7.28 (7.35-7.45) L 08/29/19 08:47 ABG pCO2 58 mmHg (34-47) H 08/29/19 08:47 ABG pO2 92 mmHg (83-108) 08/29/19 08:47 ABG HCO3 27 mmol/L (22-28) 08/29/19 08:47 ABG Total CO2 25 mmol/L (22-29) 08/29/19 08:47 ABG O2 Saturation 97 % (94-98) 08/29/19 08:47 ABG Base Excess 0.5 mmol/L (-3-3) 08/29/19 08:47 Oxygen Liter Flow R15/vt450/peep10 L 08/29/19 08:47 FiO2 100 % 08/29/19 08:47 Sodium 140 mmol/L (136-145) 08/29/19 06:05 Potassium 3.8 mmol/L (3.5-5.1) 08/29/19 06:05 Chloride 105 mmol/L (98-107) 08/29/19 06:05 Carbon Dioxide 24.4 mmol/L (21.0-32.0) 08/29/19 06:05 Anion Gap 10.6 mmol/L (3-11) 08/29/19 06:05 BUN 17 mg/dL (7-18) 08/29/19 06:05 Creatinine 1.24 mg/dL (0.70-1.30) 08/29/19 06:05 Estimated GFR/1.73 m2 >= 60.00 (mL/min/1.73m2) 08/29/19 06:05 Glucose 184 mg/dL (74-106) H 08/29/19 06:05 Hemoglobin A1c 6.1 % (3.8-5.6) H 08/29/19 06:05 Calcium 7.0 mg/dL (8.5-10.1) L 08/29/19 06:05 Phosphorus 2.7 mg/dL (2.6-4.7) 08/28/19 06:18 Magnesium 1.8 mg/dL (1.8-2.4) 08/29/19 06:05 Ferritin 742 ng/mL (26-388) H 08/28/19 06:18 Total Bilirubin 6.0 mg/dL (0.2-1.0) H 08/29/19 06:05 AST 196 U/L (15-37) H 08/29/19 06:05 ALT 91 U/L (16-63) H 08/29/19 06:05 Alkaline Phosphatase 60 U/L (46-116) 08/29/19 06:05 C-Reactive Protein > 25.00 mg/dL (0.0-0.3) H 08/29/19 06:05 NT-Pro-B Natriuret Pep 455 pg/mL (<300) H 08/29/19 06:05 Total Protein 5.8 g/dL (6.4-8.2) L 08/29/19 06:05 Albumin 2.8 g/dL (3.4-5.0) L 08/29/19 06:05 Triglycerides 143 mg/dL (<150) 08/28/19 06:18 Total Cholesterol 286 mg/dL (<200) H 08/28/19 06:18 LDL Cholesterol, Calc 241 mg/dL (<100) H 08/28/19 06:18 HDL Cholesterol 17 mg/dL (40-60) L 08/28/19 06:18 Lipase 07520 U/L (73-393) H 08/29/19 06:05 Folate 4.6 ng/mL (8.6-20.0) L 08/28/19 06:18 Urine Opiates Screen Positive (Negative) A 08/27/19 23:35 Urine Methadone Screen Negative (Negative) 08/27/19 23:35 Ur Barbiturates Screen Negative (Negative) 08/27/19 23:35 Ur Tricyclics Screen Negative (Negative) 08/27/19 23:35 Ur Amphetamines Screen Negative (Negative) 08/27/19 23:35 U Benzodiazepines Scrn Positive (Negative) A 08/27/19 23:35 Urine Cocaine Screen Negative (Negative) 08/27/19 23:35 Ur THC Screen Negative (Negative) 08/27/19 23:35
[2019-08-29] MEDS: Furosemide 20 MG/2 ML VIAL IVP (13:09)
[2019-08-29 13:11] LABS: BE 0.3 mmol/L (-3-3); HCO3 26 mmol/L (22-28); pCO2 45 mmHg (34-47); pH 7.36 (7.35-7.45); pO2 136 mmHg (83-108)
[2019-08-29 13:15] LABS: FIO2 100 %; Site Right Radial; sO2 > 99 % (94-98)
[2019-08-29] MEDS: THIAMINE 100 MG in Normal Saline 100 ML 200 MG IVPB (13:16)
[2019-08-29] MEDS: methylPREDNISolone SUCC 125 MG VIAL 60 MG IVP (13:37)
--- NOTE | 2019-08-29 13:47 | W.PM.DS.N ---
Date of service: 08/29/19 Time of Service: 13:47 DS: Diagnosis Discharge Diagnosis (1) Respiratory failure requiring intubation: Status: Acute (2) SIRS (systemic inflammatory response syndrome): Status: Acute (3) Aspiration pneumonitis: Status: Suspected (4) Severe acute pancreatitis: Status: Acute (5) Alcohol withdrawal delirium, acute, hyperactive: Status: Acute (6) Acute respiratory distress syndrome (ARDS): Status: Acute Discharge Plan Disposition Patient Disposition: [facility] Condition: Critical Discharge Details Chief Complaint: Abd Prob Reason For Visit: severe ALCHOLIC PANCREATITIS/SIRS/ARDS Admit Date/Time: 08/27/19 14:26 Admit Provider: Lanny Zhou Attending Provider: Lanny Zhou Primary Care Provider: Fahad Maldonado ED Provider: Oly Garcia Hospital Course Hospital Course: pt came to [facility] on 08/25 c/o abdom pain and N/V. CT shows: Findings suggestive of acute pancreatitis. No evidence of abscess, necrosis, phlegmon. Hepatic steatosis. Patient refused to stay in the hospital and left AMA. Lipase at this point was 1800. Patient returned to the hospital on 08 26 complaining of increasing pain and vomiting and unable to keep fluids down. His lipase was 7000. He was admitted for pain control and dehydration and started on withdrawal protocol. His bilirubin was 2. An ultrasound was done of the gallbladder and common bile duct normal. No signs of biliary disease. Patient was admitted to the ICU because of the amount of Ativan controlled. lipase 3800. The patient was still shaky but his sensorium was clear. He was tolerating water. He said his abdomen felt better. He did not require significant amount of Ativan/valium or narcotics. He did have an elevated WBC of 16. There was concern he aspirated on 08/26 and vanco and levaquin were started as pt is PCN/sulfa allergic. Around midnight 08/28, patient conditions noted to deteriorate. He became more confused, combative, and experiencing psychotic type symptoms. He eventually required sedation with barbiturates, as he had maxed out on Valium, haldol, zyprexa, and Ativan. At 7am we did have to intubate the pt for airway protection. Labs on 08/28 did show acute increase in lipase at 16,000 adn WBC 19. lacatate [address] did show severe pancreatitis. Chest- b/l plerual effussion adn atelectasis. He is retaining fluid in the abdomen. No evidence of abscess or pseuodocyst. CXR show:Mildly increasing patchy bibasilar airspace opacities. ABG: on 100% FiO2 7.36/45.4/136/25.7/96%\ Vent: TV 450. RR 15 peep 10 able to wean Fi02 to 60% and maintaining O2 sats pt has put out 150cc fluid since 7am and minimal on overnight. He is about 5L over in the past 24 hrs It does seem that he is developing ARDS pt is being transferred to [facility] to service of Dr. Pack to MICU or CCVU w/ [facility]ART family is apprised films pushed to [facility] labs copied Home Meds and New Rx's Prescriptions: Discontinued Hydrocodone/Apap 5/325, 4 Tab [[place] 5/325, 4 Tabs/Btl] 1 tab PO BID PRN (Reason: pain) Qty: 0 RF: 0 Ondansetron Odt, 3 Tabs/Btl [Zofran Odt, 3 Tabs/Btl] 4 mg PO Q8H PRN (Reason: vomiting) Qty: 0 RF: 0 Discharge Instructions Activity:: intubated Diet:: NPO DS: Summary Status at Discharge Functional status at discharge: bed bound Overall status at discharge: other Mental Status: other Speech and Movement: other Mood: other Affect: other Exam Psych Mental Status: other Speech and Movement: other Mood: other Affect: other DS: Data Vitals/I&O Vitals and I&O: Vital Signs Temperature 37.0 C 08/29/19 12:43 Temperature Source Temporal Artery Scan 08/29/19 12:09 Pulse 108 H 08/29/19 12:07 Pulse Rhythm Regular 08/28/19 00:00 Pulse 107 H 08/29/19 12:01 Respiratory Rate 20 08/29/19 13:43 Respiratory Effort Nasal Flaring 08/29/19 12:43 Respiratory Depth Normal 08/29/19 09:36 Respiratory Pattern Normal 08/29/19 09:36 Blood Pressure 128/79 08/29/19 12:01 Blood Pressure Mean 89 08/29/19 12:01 Blood Pressure Position Sitting 08/27/19 10:47 Pulse Oximetry 96 08/29/19 13:43 Respiratory End-tidal CO2 30 08/29/19 13:43 Oxygen Delivery Method Mechanical Ventilator 08/29/19 12:06 Oxygen Flow Rate 0 08/29/19 12:06 Fraction of Inspired Oxygen (FIO2) 60 08/29/19 13:43 Pain Level 0 08/29/19 12:43 Intake & Output 08/28/19 08/29/19 08/29/19 23:59 11:59 23:59 Intake Total 5655 / 9140.000 1200.233 / 1847.033 646.8 / 1847.033 Output Total 475 / 900 Balance 5180 / 8240.000 1200.233 / 1847.033 646.8 / 1847.033 Weight 109.9 kg Intake: IV 5330 / 8740.000 1140.233 / 1787.033 646.8 / 1787.033 Oral 325 / 400 60 / 60 Output: Urine 475 / 900 Other: Urine Color Dark Sakshi Light Sakshi [place] Urine Appearance Clear Urine Odor Strong Comment pt incontinent at this time. Offering urinal/toilet, pt declining stating we need to let him go home. Tenorio in place draining clear dark sakshi urine Tenorio in place draining clear dark sakshi urine Voiding Methods Urinal Data Completed and Pending Labs on day of discharge: Labs from last 24 hours 08/29/19 08/29/19 08/29/19 Unknown 13:08 12:31 WBC RBC Hgb Hct MCV MCH MCHC RDW Plt Count MPV Immature Gran % Neutrophils % Band Neutrophils % Lymphocytes % Monocytes % Eosinophils % Basophils % Absolute Neutrophils Absolute Lymphocytes Absolute Monocytes Absolute Eosinophils Absolute Basophils Nucleated RBCs Differential Comment RBC Morphology Polychromasia Anisocytosis ABG Sample Site Right radial ABG pH 7.36 ABG pCO2 45 ABG pO2 136 H ABG HCO3 26 ABG Total CO2 Pending ABG O2 Saturation > 99 H ABG Base Excess 0.3 Oxygen Liter Flow R18/vt450/peep10 FiO2 100 Sodium Potassium Chloride Carbon Dioxide Anion Gap BUN Creatinine Estimated GFR/1.73 m2 Glucose Hemoglobin A1c Lactate Pending Calcium Magnesium Total Bilirubin AST ALT Alkaline Phosphatase C-Reactive Protein NT-Pro-B Natriuret Pep Total Protein Albumin Lipase Procalcitonin Urine Opiates Screen Pending Urine Methadone Screen Pending Ur Barbiturates Screen Pending Ur Tricyclics Screen Pending Ur Amphetamines Screen Pending U Benzodiazepines Scrn Pending Urine Cocaine Screen Pending Ur THC Screen Pending 08/29/19 08/29/19 08/29/19 12:17 08:47 06:05 WBC RBC Hgb Hct MCV MCH MCHC RDW Plt Count MPV Immature Gran % Neutrophils % Band Neutrophils % Lymphocytes % Monocytes % Eosinophils % Basophils % Absolute Neutrophils Absolute Lymphocytes Absolute Monocytes Absolute Eosinophils Absolute Basophils Nucleated RBCs Differential Comment RBC Morphology Polychromasia Anisocytosis ABG Sample Site Pending Right radial ABG pH Pending 7.28 L ABG pCO2 Pending 58 H ABG pO2 Pending 92 ABG HCO3 Pending 27 ABG Total CO2 Pending 25 ABG O2 Saturation Pending 97 ABG Base Excess Pending 0.5 Oxygen Liter Flow R15/vt450/peep10 FiO2 100 Sodium Potassium Chloride Carbon Dioxide Anion Gap BUN Creatinine Estimated GFR/1.73 m2 Glucose Hemoglobin A1c Lactate Calcium Magnesium Total Bilirubin AST ALT Alkaline Phosphatase C-Reactive Protein NT-Pro-B Natriuret Pep Total Protein Albumin Lipase Procalcitonin Pending Urine Opiates Screen Urine Methadone Screen Ur Barbiturates Screen Ur Tricyclics Screen Ur Amphetamines Screen U Benzodiazepines Scrn Urine Cocaine Screen Ur THC Screen 08/29/19 08/29/19 08/29/19 06:05 06:05 06:05 WBC 18.79 H RBC 4.14 L Hgb 13.9 D Hct 41.9 MCV 101.2 H MCH 33.6 H MCHC 33.2 RDW 13.5 Plt Count 131 MPV 12.1 H Immature Gran % 0.0 Neutrophils % 78.0 Band Neutrophils % 9.0 Lymphocytes % 7.0 Monocytes % 5.0 Eosinophils % 0.0 Basophils % 1.0 Absolute Neutrophils 16.35 H Absolute Lymphocytes 1.32 Absolute Monocytes 0.94 H Absolute Eosinophils 0.00 Absolute Basophils 0.19 Nucleated RBCs 1 Differential Comment Manual differential RBC Morphology See below Polychromasia Present Anisocytosis 1+ ABG Sample Site ABG pH ABG pCO2 ABG pO2 ABG HCO3 ABG Total CO2 ABG O2 Saturation ABG Base Excess Oxygen Liter Flow FiO2 Sodium 140 Potassium 3.8 Chloride 105 Carbon Dioxide 24.4 Anion Gap 10.6 BUN 17 Creatinine 1.24 Estimated GFR/1.73 m2 >= 60.00 Glucose 184 H Hemoglobin A1c 6.1 H Lactate Calcium 7.0 L Magnesium Total Bilirubin 6.0 H AST 196 H ALT 91 H Alkaline Phosphatase 60 C-Reactive Protein > 25.00 H NT-Pro-B Natriuret Pep Total Protein 5.8 L Albumin 2.8 L Lipase Procalcitonin Urine Opiates Screen Urine Methadone Screen Ur Barbiturates Screen Ur Tricyclics Screen Ur Amphetamines Screen U Benzodiazepines Scrn Urine Cocaine Screen Ur THC Screen 08/29/19 08/29/19 06:05 06:00 WBC RBC Hgb Hct MCV MCH MCHC RDW Plt Count MPV Immature Gran % Neutrophils % Band Neutrophils % Lymphocytes % Monocytes % Eosinophils % Basophils % Absolute Neutrophils Absolute Lymphocytes Absolute Monocytes Absolute Eosinophils Absolute Basophils Nucleated RBCs Differential Comment RBC Morphology Polychromasia Anisocytosis ABG Sample Site ABG pH ABG pCO2 ABG pO2 ABG HCO3 ABG Total CO2 ABG O2 Saturation ABG Base Excess Oxygen Liter Flow FiO2 Sodium Potassium Chloride Carbon Dioxide Anion Gap BUN Creatinine Estimated GFR/1.73 m2 Glucose Hemoglobin A1c Lactate Calcium Magnesium 1.8 Cancelled Total Bilirubin AST ALT Alkaline Phosphatase C-Reactive Protein NT-Pro-B Natriuret Pep 455 H Total Protein Albumin Lipase 21404 H Procalcitonin Urine Opiates Screen Urine Methadone Screen Ur Barbiturates Screen Ur Tricyclics Screen Ur Amphetamines Screen U Benzodiazepines Scrn Urine Cocaine Screen Ur THC Screen [facility] Medical History Acute respiratory distress syndrome (ARDS) (Acute) Alcohol dependence with withdrawal delirium (Acute) Alcohol withdrawal delirium, acute, hyperactive (Acute) ETOH abuse (Chronic) No active medical problems (Acute) Surgical History S/P hernia repair (Inactive) Social History (Updated 08/29/19 @ 13:49 by Lanny Zhou DO) Smoking/Tobacco Use Status: Current every day Alcohol Intake: current Alcohol Intake frequency: 3 or more drinks per day Alcohol type: beer Details: admits to 12-24 beers daily Drug use: Daily Substance use type: marijuana Do you feel safe at home: Yes Do you feel safe in your relationship?: Yes
[2019-08-29] MEDS: IMIPENEM/CILASTATIN 500 MG in Normal Saline 100 ML 200 MG IVPB (13:50)
[2019-08-29 13:56] LABS: Lactate 1.1 mmol/L (0.6-1.4)
[2019-08-29 14:24] LABS: *AMPHETAMINES SCREEN URINE Negative (Negative); *BARBITURATES SCREEN URINE POSITIVE (Negative); *BENZODIAZEPINES SCREEN URINE POSITIVE (Negative); Cannabinoids THC Negative (Negative); Cocaine Screen,Urine Negative (Negative); METHADONE URINE SCREEN Negative (Negative); OPIATES URINE SCREEN Negative (Negative)
[2019-08-29 14:34] LABS: Tricyclic Antidepressants Negative (Negative)
[2019-08-29 14:37] LABS: Procalcitonin 2.7 ng/mL
[2019-08-29 14:45] LABS: Bilirubin Moderate (Negative); Blood Large (Negative); Clarity Clear (Clear); Glucose Negative (Negative); Ketones Trace mg/dL (Negative); Leukocyte Esterase Negative (Negative); Nitrite Negative (Negative); Specific Gravity 1.015 (1.005-1.025); Urobilinogen 0.2 EU/dL (Up TO 0.2)
[2019-08-29 15:04] LABS: Epithelial Cells Few HPF (Negative); WBC 0-2 HPF (0-5)
[2019-08-29 15:05] LABS: Bacteria Moderate HPF (Negative); Crystals Negative HPF (Negative); Mucus Negative (Negative)
[2019-08-29 15:06] LABS: C & S Indicated? Yes
--- NOTE | 2019-08-29 15:27 | CMPROGNOTE_ITS ---
Care Management Progress Note Eduardo was sent to [facility] via [facility] due to deteriorating condition. met with Eduardo's Sylvia hernandez and his family to provide support prior to transfer.
--- NOTE | 2019-08-29 15:27 | PDOC.CMPRO ---
Care Management Progress Note Eduardo was sent to [facility] via [facility] due to deteriorating condition. met with Eduardo's Sylvia hernandez and his family to provide support prior to transfer.
== END 2019-08-29 14:28 | disposition short-term general hospital (02) | DRG 438 ==
LOC: ER 17:19 → ICU 18:02
PROVIDERS: Internal Medicine; Admitting Provider Surgery; Emergency Provider Physician Assistant; PCP Family Medicine; Visit Provider Surgery
DX: K85.20 Alcohol induced acute pancreatitis without necrosis or infection (principal); J80 Acute respiratory distress syndrome; J69.0 Pneumonitis due to inhalation of food and vomit; F10.231 Alcohol dependence with withdrawal delirium; R65.10 Systemic inflammatory response syndrome (SIRS) of non-infectious origin without acute organ dysfunction; K76.0 Fatty (change of) liver, not elsewhere classified; E86.0 Dehydration; F17.210 Nicotine dependence, cigarettes, uncomplicated; Z78.1 Physical restraint status; S09.90XA Unspecified injury of head, initial encounter; W06.XXXA Fall from bed, initial encounter; Y92.230 Patient room in hospital as the place of occurrence of the external cause; I50.9 Heart failure, unspecified
CPT/HCPCS: 36415; 71045; 80053; 80061; 80307; 82805; 83690; 84145; 93005; 96361; 96365; 96375; 96376; 97161; 99223; 99233; 99239; 99255; 99285; 99291; J1650; 31500; 36600; 70450; 74177; 76705; 81003; 81015; 82728; 82746; 83036; 83605; 83735; 83880; 84100; 85025; 86140; 87086; 93010; 94002; 94640; J0743; J1630; J1941; J2060; J2405; J2560; J2930; J3360; J3370; J3490; J7620

== ENCOUNTER 2020-04-30 01:21 | Outpatient (CLI) | payer BC, SELFPAY ==
--- NOTE | 2020-04-30 13:00 | NS.NUTBLAN_ITS ---
ASSESSMENT: Eduardo (39 y/o Male) presents with referral for DM2 r/t recent hxc for pancreatitis. He was intubated and on TPN at [facility] inpatient and transferred to [facility] in August 2019 per documentation. Noted: hx ETOH abuse and dependence. He reports that he is now sober and exercising with a workplace trainer and assessor 1 hour 2X/ week. he has had sig beneficial weight loss over 6 mos. Current weight is 90.9 kg which is ~ 25 # weight loss. His IBW is 73kg. He requires education on DM2, BG control, food choices and CHO counting.Eduardo gave this RD one day diet hx. he had 4 fried eggs at Breakfast and 2 Boiled eggs at lunch, Mendes Pie at supper. He drinks coffee, water and milk. Needs are based on ABW 82kg as follows:[id number] k/madhavi, 123g PRO ( 1.5 a/f for workouts), and ~2500 ml fluids/day. Noted: finger sticjk at this appointment revealed BG 179mg/dl 1.5 hours postprandial. Last A1c in August 2019 was 7.4 per documentation. DX: New Onset DM2 r/t compromised pancreatic function and hx ETOH abuse AEB: A1c 7.4 and BG 179 mg/dl. INTERVENTION: Provided education on CHO counting, Pro/CHO Pairing, with take home literature. Recommend diet with less eggs and sat fat s to help pancreatic with. function and continued appropriate weight loss. encouraged ETOH abstinence and continued exercise. 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 Recommended <60/g CHO per meal period. PLAN: Eduardo will continue his weight loss, exercise and healthy eating regimen, incorporate more nutrient dense foods and vegetables into his diet, reduce SFAs and track his blood sugar to observe trends and take appropriate tx action. He is planning to have F/U appointment with this Rd to review progress and develop meal plans for new healthy lifestyle Time spent Face to Face: ! hour/4 Units
== END 2020-04-30 01:41 ==
PROVIDERS: PCP Family Medicine; Visit Provider Dietitian, Registered
DX: E11.9 Type 2 diabetes mellitus without complications (principal); F10.11 Alcohol abuse, in remission; K85.80 Other acute pancreatitis without necrosis or infection; Z71.3 Dietary counseling and surveillance
CPT/HCPCS: 97802

== ENCOUNTER 2020-05-03 02:59 | Outpatient (CLI) | payer BC, SELFPAY ==
[2020-05-03 16:12] LABS: HCT 41.7 % (40.0-50.0); MCHC 33.6 % (32.0-36.0); MCV 86.3 fL (80-95); MPV 11.7 fL (8.0-11.0); Platelet Count 249 10^3/uL (130-400); RBC 4.83 10^6/uL (4.36-5.78); RDW 12.3 % (11.8-14.1); RDW-SD 38.7 fL; WBC 9.94 10^3/uL (4.4-10.8)
[2020-05-03 16:19] LABS: COMMENT (LAB VIEW ONLY) 51.55 mg/dL; Microalb ug/mg Crea 14.4 ug/mg Cr
[2020-05-03 16:57] LABS: ALT 36 U/L (16-63); AST 21 U/L (15-37); Albumin 4.7 g/dL (3.4-5.0); Alkaline Phosphatase 68 U/L (46-116); Anion Gap 9.3 mmol/L (3-11); BUN 18 mg/dL (7-18); Bilirubin, Total 0.3 mg/dL (0.2-1.0); CO2 28.7 mmol/L (21.0-32.0); CREATININE 0.97 mg/dL (0.70-1.30); Calcium 9.4 mg/dL (8.5-10.1); Calculated LDL 151 mg/dL (<100); Chloride 102 mmol/L (98-107); Cholesterol 205 mg/dL (<200); Glucose 103 mg/dL (74-106); HDL Cholesterol 34 mg/dL (40-60); Potassium 4.1 mmol/L (3.5-5.1); Sodium 140 mmol/L (136-145); Total Protein 7.4 g/dL (6.4-8.2); Triglyceride 104 mg/dL (<150)
== END 2020-05-03 03:19 ==
PROVIDERS: PCP Family Medicine; Visit Provider Family Medicine
DX: E11.42 Type 2 diabetes mellitus with diabetic polyneuropathy (principal)
CPT/HCPCS: 36415; 80053; 80061; 85027; 82043; 82570

== ENCOUNTER 2021-01-28 14:54 | Outpatient (REF) | payer BC, SELFPAY ==
[2021-01-28 16:28] LABS: ALT 33 U/L (16-63); AST 15 U/L (15-37); Albumin 4.7 g/dL (3.4-5.0); Alkaline Phosphatase 87 U/L (46-116); Anion Gap 10.3 mmol/L (3-11); BUN 22 mg/dL (7-18); Bilirubin, Total 0.2 mg/dL (0.2-1.0); CO2 27.7 mmol/L (21.0-32.0); CREATININE 0.8 mg/dL (0.70-1.30); Calcium 9.4 mg/dL (8.5-10.1); Calculated LDL 115 mg/dL (<100); Chloride 101 mmol/L (98-107); Cholesterol 174 mg/dL (<200); Glucose 197 mg/dL (74-106); HDL Cholesterol 37 mg/dL (40-60); Potassium 4.4 mmol/L (3.5-5.1); Sodium 139 mmol/L (136-145); Total Protein 7.8 g/dL (6.4-8.2); Triglyceride 111 mg/dL (<150)
== END 2021-01-28 14:55 | disposition home or self-care (01) ==
LOC: LBN 14:54
PROVIDERS: PCP Family Medicine; Visit Provider Nurse Practitioner Family
DX: Z00.00 Encounter for general adult medical examination without abnormal findings (principal); E78.5 Hyperlipidemia, unspecified
CPT/HCPCS: 80053; 80061

== ENCOUNTER 2021-09-23 15:37 | Outpatient (REF) | payer BC, SELFPAY ==
[2021-09-23 17:27] LABS: COMMENT (LAB VIEW ONLY) 41.26 mg/dL; Microalb ug/mg Crea 27.1 ug/mg Cr
== END 2021-09-23 15:38 | disposition home or self-care (01) ==
LOC: LBN 15:37
PROVIDERS: PCP Family Medicine; Visit Provider Family Medicine
DX: E11.40 Type 2 diabetes mellitus with diabetic neuropathy, unspecified (principal)
CPT/HCPCS: 82043; 82570

== ENCOUNTER 2022-11-28 08:39 | Outpatient (CLI) | payer BC, SELFPAY ==
[2022-11-28 12:50] LABS: ALT 46 U/L (16-63); AST 18 U/L (15-37); Albumin 4.2 g/dL (3.4-5.0); Alkaline Phosphatase 75 U/L (46-116); BUN 21 mg/dL (7-18); Bilirubin, Total 0.2 mg/dL (0.2-1.0); CREATININE 0.9 mg/dL (0.70-1.30); Calcium 9.2 mg/dL (8.5-10.1); Calculated LDL 78 mg/dL (<100); Chloride 104 mmol/L (98-107); Cholesterol 145 mg/dL (<200); Estimated GFR 110.04 (mL/min/1.73m2); Glucose 139 mg/dL (74-106); HDL Cholesterol 38 mg/dL (40-60); Potassium 4.5 mmol/L (3.5-5.1); Sodium 141 mmol/L (136-145); Total Protein 7.4 g/dL (6.4-8.2); Triglyceride 146 mg/dL (<150)
== END 2022-11-28 08:40 | disposition home or self-care (01) ==
LOC: LOS 08:39
PROVIDERS: PCP Family Medicine; Visit Provider Family Medicine
DX: E11.65 Type 2 diabetes mellitus with hyperglycemia (principal); Z79.4 Long term (current) use of insulin
CPT/HCPCS: 36415; 80053; 80061; 82043; 82570

== ENCOUNTER 2023-03-21 11:55 | Emergency (ER) | payer OTHER, SELFPAY ==
[2023-03-21 12:00] VITALS: BP 108/88; PULSE 76; RESP 16; TEMP 36.8; O2SAT 99
--- NOTE | 2023-03-21 12:28 | ED.GENADUL_ITS ---
Discharge Plan Disposition Patient Disposition: Home Condition: Stable Discharge Details Clinical Impression: Hamstring muscle strain Primary Care Provider: Brii Reid ED Provider: Eusebio Liz Home Meds and New Rx's Prescriptions: Continued Jardiance 25 mg tablet 25 mg PO QAM Qty: 90 4RF metformin 500 mg tablet 1,000 mg PO BID Qty: 360 4RF atorvastatin 20 mg tablet 20 mg PO QPM Qty: 90 4RF (DME) Blood Glucose Test Strip See Rx Instructions .ROUTE .MEDSUPPLY Qty: 200 4RF Rx Instructions: Check blood sugar twice a day (DME) blood-glucose meter [Blood Glucose Monitoring] Kit See Rx Instructions .ROUTE .MEDSUPPLY Qty: 1 4RF Rx Instructions: Check blood sugar twice a day (DME) lancets [Fingerstix Lancets] Misc See Rx Instructions .ROUTE .MEDSUPPLY Qty: 200 4RF Rx Instructions: Check blood sugar twice a day (DME) pen needle, diabetic [AboutTime Pen Needle] 31 gauge x 3/16 needle See Rx Instructions .Route Qty: 100 3RF Rx Instructions: twice daily insulin degludec 100 unit/mL (3 mL) insulin pen 10 unit subcut DAILY Qty: 15 3RF Discharge Instructions Instructions: Muscle Strain (ED) Additional Instructions: Please take ibuprofen over the counter. Take 600mg by mouth every 6 hours as needed for pain. Please contact your primary care physician to arrange follow-up. Should pain persist, additional diagnostic testing may be necessary. Please be sure to discuss with your doctor if pain does not resolve as expected and discussed. Return to the ER immediately for any worsening or new concerning symptoms. Referrals: Brii Reid MD [Primary Care Provider] - Medical Decision Making 42-year-old male here with right inner thigh pain with certain positions that started a few days ago. Patient does not recall any specific traumatic event. Patient has pain with hip flexion and adduction in his proximal medial thigh. Suspect hamstring strain. Supportive care recommended. Usual customary discharge instructions were reviewed with the patient including need to follow- up for persistent symptoms or return for worsening or new concerning symptoms. HPI General Mode of arrival: ambulatory . Date/Time Provider Initiated Documentation: 03/21/23 12:16 . Limitations to Documentation: no limitations . Information obtained by: patient . HPI Narrative: 42-year-old male presents with chief complaint of right inner thigh pain. Pain started 3 days ago while he was seated with legs crossed at work. Pain is intermittent and worse with certain positions including crossing his legs and at times while he is walking. Pain localized to right upper inner thigh and medial thigh. Patient does not recall any specific injury but does note he was walking with this past weekend. He has no associated rash. No fever. No testicular swelling or pain. No inguinal pain or swelling. Related Data Home Medications Medication Instructions Recorded Confirmed Blood Glucose Test (blood sugar #200 ea 08/30/21 11/28/22 diagnostic) blood-glucose meter (Blood Glucose #1 ea 08/30/21 11/28/22 Monitoring kit) lancets (Fingerstix Lancets) #200 ea 08/30/21 11/28/22 atorvastatin 20 mg tablet 20 mg PO QPM #90 tabs 08/11/22 03/21/23 empagliflozin 25 mg tablet 25 mg PO QAM #90 tabs 08/11/22 03/21/23 (Jardiance) metformin 500 mg tablet 1,000 mg PO BID #360 tabs 08/11/22 03/21/23 pen needle, diabetic 31 gauge x #100 ea 10/06/22 11/28/22 3/16 (AboutTime Pen Needle) insulin degludec 100 unit/mL (3 10 unit (0.1 mL) subcut DAILY #15 03/16/23 03/21/23 mL) subcutaneous pen mL Previous Rx's Medication Instructions Recorded Blood Glucose Test (blood sugar #200 ea 08/30/21 diagnostic) blood-glucose meter (Blood Glucose #1 ea 08/30/21 Monitoring kit) lancets (Fingerstix Lancets) #200 ea 08/30/21 atorvastatin 20 mg tablet 20 mg PO QPM #90 tabs 08/11/22 empagliflozin 25 mg tablet 25 mg PO QAM #90 tabs 08/11/22 (Jardiance) metformin 500 mg tablet 1,000 mg PO BID #360 tabs 08/11/22 pen needle, diabetic 31 gauge x #100 ea 10/06/22 3/16 (AboutTime Pen Needle) insulin degludec 100 unit/mL (3 10 unit (0.1 mL) subcut DAILY #15 03/16/23 mL) subcutaneous pen mL Allergies Allergy/AdvReac Type Severity Reaction Status Date / Time Penicillins Allergy Unknown possible Verified 03/21/23 12:56 reaction Sulfa (Sulfonamide Allergy Unknown possible Verified 03/21/23 12:56 Antibiotics) reaction metoclopramide AdvReac Severe Anxiety Verified 03/21/23 12:56 and akathisia General Stated Complaint: Orthopedic GABRIELLE: 4 Review of Systems Musculoskeletal Musculoskeletal: Reports as per HPI and Denies tingling Neurologic Neurologic: Denies sensory deficit and Denies tingling PFSH All Active Problems (Updated 03/21/23 @ 12:40 by Eusebio Liz MD) 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 Type 2 diabetes mellitus with diabetic neuropathy, with long-term current use of insulin (Acute) Hamstring muscle strain (Acute) Medical History History of alcohol dependence Surgical History S/P hernia repair Family History Mother Throat cancer Father Heart disease Sister Depression Sister Depression Social History Smoking/Tobacco Use Status: Former Tobacco Use Quit Date: 06/25/19 Tobacco: How many years used: 25 Second Hand Exposure: No Smoking risk assessment performed?: Yes Alcohol Intake: former Year quit: 2019 Details: hx 12-24 beers daily Drug use: Daily Substance use type: marijuana Household members: spouse and children Housing: house Number of Children: 3 Communication Needs: None Do you need help understanding health information?: Never 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 [employer] Pets and animals: Yes Pets and animals: dog(s) Sexually active: Yes Do you think of yourself as: straight/heterosexual Current gender identity: male What is your relationship status?: Panel score (0-1 are the most socially isolated patients): 1 What type of physical activity do you participate in: none Duration: 45-60 minutes/day Frequency: 3-4 times per week Seatbelt use: sometimes Helmet use: Yes Helmet use: sometimes Drive intox or ride w/intox emergency medical technician/driver: No Do you feel safe at home: Yes Do you feel safe in your relationship?: Yes Exam Const General: cooperative and no acute distress HENMT Mouth: moist mucous membranes Cardio Rate: regular rate and not tachycardic Rhythm: regular rhythm GI Palpation: soft, not firm, no guarding, no masses, not rigid and nontender Skin General skin exam: no rashes or lesions noted Neuro General: patient alert, patient awake and tone normal Extrem General: no edema Course Vital Signs Vital signs: Vital Signs Temperature 36.8 C 03/21/23 12:00 Pulse 76 03/21/23 12:00 Respiratory Rate 16 03/21/23 12:00 Blood Pressure 108/88 03/21/23 12:00 Pulse Oximetry 99 03/21/23 12:00 Temperature 36.8 C 03/21/23 12:00 Temperature Source Skin 03/21/23 12:00 Pulse 76 03/21/23 12:00 Respiratory Rate 16 03/21/23 12:00 Blood Pressure 108/88 03/21/23 12:00 Blood Pressure Position Sitting 03/21/23 12:00 Pulse Oximetry 99 03/21/23 12:00 Oxygen Delivery Method Room Air 03/21/23 12:00 Oxygen Flow Rate 0 03/21/23 12:00 Pain Level 0 03/21/23 12:00 Comment no pain at rest no use of 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
== END 2023-03-21 13:06 | disposition home or self-care (01) ==
PROVIDERS: Emergency Provider Student in an Organized Health Care Education/Training Program; PCP Family Medicine
DX: S76.811A Strain of other specified muscles, fascia and tendons at thigh level, right thigh, initial encounter (principal); X58.XXXA Exposure to other specified factors, initial encounter; E11.40 Type 2 diabetes mellitus with diabetic neuropathy, unspecified; Z79.4 Long term (current) use of insulin; Z87.891 Personal history of nicotine dependence
CPT/HCPCS: 99282

== ENCOUNTER 2024-05-07 14:37 | Outpatient (REF) | payer OTHER, SELFPAY ==
[2024-05-07 15:31] LABS: COMMENT (LAB VIEW ONLY) 80.23 mg/dL; Microalb ug/mg Crea 23.8 ug/mg Cr
== END 2024-05-07 14:38 | disposition home or self-care (01) ==
LOC: LBN 14:37
PROVIDERS: PCP Family Medicine; Visit Provider Family Medicine
DX: E11.40 Type 2 diabetes mellitus with diabetic neuropathy, unspecified (principal); Z79.4 Long term (current) use of insulin
CPT/HCPCS: 82043; 82570

== ENCOUNTER 2024-11-05 09:00 | Outpatient (CLI) | payer OTHER, SELFPAY ==
[2024-11-05 12:36] LABS: ALT 22 U/L (16-63); AST 14 U/L (15-37); Albumin 4.4 g/dL (3.4-5.0); Alkaline Phosphatase 97 U/L (46-116); BUN 19 mg/dL (7-18); Bilirubin, Total 0.3 mg/dL (0.2-1.0); CREATININE 0.9 mg/dL (0.70-1.30); Calcium 9.7 mg/dL (8.5-10.1); Calculated LDL 92 mg/dL (<100); Chloride 99 mmol/L (98-107); Cholesterol 143 mg/dL (<200); Estimated GFR 108.68 (mL/min/1.73m2); Glucose 250 mg/dL (74-106); HDL Cholesterol 40 mg/dL (>or=40); Potassium 4.5 mmol/L (3.5-5.1); Sodium 137 mmol/L (136-145); Total Protein 7.6 g/dL (6.4-8.2); Triglyceride 56 mg/dL (<150)
== END 2024-11-05 09:01 | disposition home or self-care (01) ==
LOC: LOS 09:00
PROVIDERS: PCP Family Medicine; Visit Provider Family Medicine
DX: E11.9 Type 2 diabetes mellitus without complications (principal); E11.40 Type 2 diabetes mellitus with diabetic neuropathy, unspecified; Z79.4 Long term (current) use of insulin
CPT/HCPCS: 36415; 80053; 80061

== ENCOUNTER 2025-06-12 15:40 | Outpatient (REF) | payer OTHER, SELFPAY ==
[2025-06-12 21:34] LABS: Microalb ug/mg Crea 4.3 ug/mg Cr
== END 2025-06-12 15:41 | disposition home or self-care (01) ==
LOC: LBN 15:40
PROVIDERS: PCP Family Medicine; Visit Provider Family Medicine
DX: E11.9 Type 2 diabetes mellitus without complications (principal); E11.40 Type 2 diabetes mellitus with diabetic neuropathy, unspecified; Z79.4 Long term (current) use of insulin
CPT/HCPCS: 82043; 82570